=== PATIENT | female | born 1930 | race Caucasian/White ===

== ENCOUNTER → 2016-05-04 | Outpatient (CLI) | payer MEDICARE ==
[~2016-05-04] MED LIST: ACET500T3 PO; CLON0.5T PO; ERGO1CAP10 PO; FERR1TAB58 PO; IMIP50TA PO; LEXA20TA PO; LISI10TA3 PO; NORC5TAB PO; PRIM50 PO; SERO100T PO
[2016-05-04 13:27] LABS: BICARBONATE 26.6 MEQ/L (21.0-32.0); POTASSIUM 4.9 MEQ/L (3.5-5.1)
[2016-05-04 13:53] LABS: FREE T4 0.74 NG/DL (0.76-1.46)
== END ==
LOC: PLAB 09:28
PROVIDERS: ATTEND Family Medicine
DX: E87.5 Hyperkalemia (principal); E53.8 Deficiency of other specified B group vitamins; E78.4 Other hyperlipidemia; E78.5 Hyperlipidemia, unspecified; G61.9 Inflammatory polyneuropathy, unspecified
CPT/HCPCS: 80048; 82607; 84439; 84443; 84480; 86403

== ENCOUNTER → 2016-06-01 | Outpatient (CLI) | payer MEDICARE ==
[2016-06-01 13:08] LABS: HEMATOCRIT 34.9 % (35.0-46.0); MEAN CELL VOLUME 89.2 FL (80.0-100.0); MEAN CORPUSCULAR HEMOGLOBIN 29.9 PG (27.0-34.0); MEAN CORPUSCULAR HGB CONC 33.5 % (32.0-36.0); PLATELET COUNT 151 TH/MM3 (150-450); RED BLOOD COUNT 3.92 MIL/MM3 (4.00-5.30); REVIEW FLAG FINAL; WHITE BLOOD COUNT 6.2 TH/MM3 (4.0-11.0)
[2016-06-01 13:18] LABS: BACTERIA, URINE MANY /hpf; BLOOD, URINE NEG (NEG); GLUCOSE,URINE NEG (NEG); HYALINE CAST, URINE 1 /lpf (RARE); KETONE, URINE NEG (NEG); NITRITE,URINE POS (NEG); PH, URINE 5.5 (5.0-8.5); SQUAMOUS EPITHELIAL CELL URINE 4 /hpf (0-5); URINE COLOR YELLOW (YELLW/STRAW)
[2016-06-01 13:44] LABS: ANION GAP 6 MEQ/L (5-15); BLOOD UREA NITROGEN 31 MG/DL (7-18); CHLORIDE 111 MEQ/L (98-107); GLOMERULAR FILTRATION RATE 32 ML/MIN (>89); POTASSIUM 4.6 MEQ/L (3.5-5.1); SODIUM (NA) 141 MEQ/L (136-145)
[2016-06-01 14:01] LABS: FERRITIN 73 NG/ML (8-252); GLUCOSE,FASTING 96 MG/DL (74-99); IMMUNOGLOBULIN A 329 MG/DL (96-532); IMMUNOGLOBULIN G 1140 MG/DL (650-1610); IMMUNOGLOBULIN M 171 MG/DL (39-238); KAPPA LAMBDA RATIO 1.75 (1.57-3.93); LAMBDA LIGHT CHAIN 170 MG/DL (90-210); TOTAL PROTEIN SPE 7.5 GM/DL (6.0-7.6); TRANSFERRIN IRON PROFILE 224 MG/DL (200-360)
[2016-06-01 22:41] LABS: ALBUMIN SPE 4.31 GM/DL (3.50-5.00); ALPHA 1 GLOBULIN 0.28 GM/DL (0.11-0.29); ALPHA 2 GLOBULIN 0.87 GM/DL (0.22-1.00); BETA GLOBULINS (SPE) 0.84 GM/DL (0.53-1.03)
== END ==
LOC: PLAB 08:55
PROVIDERS: ATTEND Internal Medicine Nephrology
DX: N18.3 Chronic kidney disease, stage 3 (moderate) (principal); D64.9 Anemia, unspecified
CPT/HCPCS: 36415; 80069; 81001; 82570; 82728; 82784; 83540; 83550; 83883; 83970; 84156; 84165; 85027; 86160; 86334

== ENCOUNTER 2016-06-09 09:55 | Emergency (ER) | payer MEDICARE ==
[~2016-06-09] VITALS: Ht 167.6 cm; Wt 90.5 kg
[~2016-06-09 09:55] MED LIST changes: -FERR1TAB58 PO; -NORC5TAB PO
[2016-06-09 10:12] VITALS: BP 144/74; PULSE 73; RESP 18; TEMP 98.7; O2SAT 96
--- NOTE | 2016-06-09 10:23 | PD ---
HPI . Right foot injury Chief Complaint: Injury Time Seen by Provider: 10:17 Travel History International Travel<30 days: No Contact w/Intl Traveler<30days: No History of Present Illness HPI Patient is brought in by her family for evaluation of her right foot injury which occurred a little better than 24 hours ago. She reportedly fell during the night. She has had pain with ambulation since then. Family has noticed some bruising in the area PFSH Past Medical History Anxiety: Yes Depression: Yes Cancer: No Cardiovascular Problems: No High Cholesterol: Yes Dementia: Yes Diabetes: No Diminished Hearing: No Endocrine: No Gastrointestinal Disorders: No Genitourinary: Yes (sees Dr Christine for kidney insuff) Hypertension: Yes Immune Disorder: No Implanted Vascular Access Dvce: No Musculoskeletal: No Neurologic: Yes (upper extrem tremors- sees Dr Garnett. Dementia) Psychiatric: Yes Respiratory: No Renal Failure: Yes Menopausal: Yes Past Surgical History Cholecystectomy: Yes Eye Surgery: Yes (CATARACTS REMOVED BILAT. 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 Reported Meds & Prescriptions Reported Meds & Active Scripts Active [place] (Hydrocodone-Acetaminophen) 5-325 mg Tab 1 Tab PO Q6H PRN Acetaminophen 500 Mg Tab 500 Mg PO Q6H PRN Reported Iron (Ferrous Sulfate) 50 Mg Tab 65 Mg PO DAILY Vitamin D (Ergocalciferol) 50,000 Unit Cap 50,000 Units PO Q7D Seroquel (Quetiapine Fumarate) 100 Mg Tab 50 Mg PO BID Mysoline (Primidone) 50 Mg Tab 100 Mg PO TID Imipramine HCL (Imipramine HCl) 50 Mg Tab 200 Mg PO HS Lexapro (Escitalopram Oxalate) 20 Mg Tab 20 Mg PO DAILY Clonazepam 0.5 Mg Tab 0.5 Mg PO BID Review of Systems Except as stated in HPI: all other systems reviewed are Neg Musculoskeletal: Positive: Arthralgias Skin: Positive Change in Pigmentation Physical Exam Narrative GENERAL: Awake and alert and in no acute distress. SKIN: Warm and dry. Minimal bruising on the dorsal aspect of the right foot at the base of the toes. CARDIOVASCULAR: Regular rate and rhythm. RESPIRATORY: No accessory muscle use. MUSCULOSKELETAL: No obvious deformities. No edema. Mild tenderness to palpation of the distal metatarsals. NEUROLOGICAL: Awake and alert. No obvious cranial nerve deficits. Motor grossly within normal limits. Normal speech. PSYCHIATRIC: Appropriate mood and affect; insight and judgment normal. Data Data Last Documented VS Vital Signs Date Time Temp Pulse Resp B/P Pulse Ox O2 Delivery O2 Flow Rate FiO2 06/09/16 10:12 98.7 73 18 144/74 96 Room Air Orders Foot, Complete ([id number]) (06/09/16 10:20) [facility] Medical Decision Making Medical Screen Exam Complete: Yes Emergency Medical Condition: Yes Differential Diagnosis Differential diagnosis of extremity trauma includes but is not limited to fracture, sprain or strain, dislocation, contusion Narrative Course Patient presents for evaluation of a right foot injury. X-ray to my interpretation is negative for fracture. Diagnosis Primary Impression: Contusion of right foot Qualified Code: S90.31XA - Contusion of right foot, initial encounter Patient Instructions: Contusion in Adults (DC), General Instructions Additional Instructions: Rest, ice and elevate Med/Other Pt SpecificInfo: Prescription(s) given Scripts Hydrocodone-Acetaminophen ([place])5-325 mg Tab1 Tab PO Q6H PRN (PAIN) #10 TAB Ref 0 Prov:Nicole Scott MD 06/09/16 Disposition: 01 DISCHARGE HOME Condition: Stable Nicole Scott MD Jun 09, 2016 10:23
[2016-06-09] MEDS ORDERED: FERR1TAB58 PO (10:32)
--- NOTE | 2016-06-09 10:46 | RADHPO ---
EXAM DATE/TIME: 06/09/2016 10:23 [facility] COMPARISON: No previous studies available for comparison. INDICATIONS : Right lateral/dorsal foot pain/swelling after falling out of bed. MEDICAL HISTORY : Hypertension. Hypercholesterolemia. Renal failure. Dementia. SURGICAL HISTORY : Cholecystectomy. Tonsillectomy. Cataract. ENCOUNTER: Initial ACUITY: 2 days PAIN SCORE: 8/10 LOCATION: Right lateral dorsal foot. FINDINGS: Three view examination of the right foot demonstrates soft tissue swelling without islocation, or fra cture. The tarsal bones appear intact. Moderate size plantar calcaneal spur. The calcaneus is inta ct. Bony mineralization is normal. CONCLUSION: Soft tissue swelling without fracture. Marlon Orozco MD on June 09, 2016 at 10:39 Board Certified Radiologist. This report was verified electronically.
[2016-06-09] MEDS ORDERED: NORC5TAB PO (10:48)
== END 2016-06-09 11:00 | disposition home or self-care (01) ==
LOC: PHED 09:55
DX: S90.31XA Contusion of right foot, initial encounter (principal); I10 Essential (primary) hypertension; E78.00 Pure hypercholesterolemia, unspecified; F03.90 Unspecified dementia, unspecified severity, without behavioral disturbance, psychotic disturbance, mood disturbance, and anxiety; Z87.448 Personal history of other diseases of urinary system; Z86.69 Personal history of other diseases of the nervous system and sense organs; Z86.59 Personal history of other mental and behavioral disorders; Z87.891 Personal history of nicotine dependence; W19.XXXA Unspecified fall, initial encounter
CPT/HCPCS: 73630; 99283

== ENCOUNTER 2016-07-12 13:19 | Emergency (ER) | payer MEDICARE ==
[~2016-07-12] VITALS: Ht 167.6 cm; Wt 84.0 kg
[~2016-07-12 13:19] MED LIST changes: +FERR1TAB58 PO; -LISI10TA3 PO; +NORC5TAB PO
[2016-07-12 13:36] VITALS: BP 143/78; PULSE 68; RESP 16; TEMP 98.4; O2SAT 93
--- NOTE | 2016-07-12 13:56 | PD ---
HPI Chief Complaint: Fall Time Seen by Provider: 13:53 Travel History International Travel<30 days: No Contact w/Intl Traveler<30days: No Traveled to known affect area: No History of Present Illness HPI Patient presents for skin tear right forearm. Reports a fall last night while using her walker where she hit her right upper arm on the wall. Dressing was applied at that time. Tetanus is up-to-date. PFSH Past Medical History Anxiety: Yes Depression: Yes Cancer: No Cardiovascular Problems: No High Cholesterol: Yes Dementia: Yes Diabetes: No Diminished Hearing: No Endocrine: No Gastrointestinal Disorders: No Genitourinary: Yes (sees Dr Christine for kidney insuff) Hypertension: Yes Immune Disorder: No Implanted Vascular Access Dvce: No Musculoskeletal: No Neurologic: Yes (upper extrem tremors- sees Dr Garnett. Dementia) Psychiatric: Yes Respiratory: No Renal Failure: Yes Menopausal: Yes Past Surgical History Cholecystectomy: Yes Eye Surgery: Yes (CATARACTS REMOVED BILAT. 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 Reported Meds & Prescriptions Reported Meds & Active Scripts Active [place] (Hydrocodone-Acetaminophen) 5-325 mg Tab 1 Tab PO Q6H PRN Acetaminophen 500 Mg Tab 500 Mg PO Q6H PRN Reported Iron (Ferrous Sulfate) 50 Mg Tab 65 Mg PO DAILY Vitamin D (Ergocalciferol) 50,000 Unit Cap 50,000 Units PO Q7D Seroquel (Quetiapine Fumarate) 100 Mg Tab 50 Mg PO BID Mysoline (Primidone) 50 Mg Tab 100 Mg PO TID Imipramine HCL (Imipramine HCl) 50 Mg Tab 200 Mg PO HS Lexapro (Escitalopram Oxalate) 20 Mg Tab 20 Mg PO DAILY Clonazepam 0.5 Mg Tab 0.5 Mg PO BID Review of Systems General / Constitutional: No: Fever Eyes: No: Visual changes HENT: No: Headaches Cardiovascular: No: Chest Pain or Discomfort Respiratory: No: Shortness of Breath Gastrointestinal: No: Abdominal Pain Genitourinary: No: Dysuria Musculoskeletal: No: Pain Skin: No Rash Neurologic: No: Weakness Psychiatric: No: Depression Endocrine: No: Polydipsia Hematologic/Lymphatic: No: Easy Bruising Physical Exam Narrative GENERAL: Well-nourished, well-developed patient. SKIN: Warm and dry. HEAD: Normocephalic. EYES: No scleral icterus. No injection or drainage. NECK: Supple, trachea midline. No JVD or lymphadenopathy. CARDIOVASCULAR: Regular rate and rhythm without murmurs, gallops, or rubs. RESPIRATORY: Breath sounds equal bilaterally. No accessory muscle use. GASTROINTESTINAL: Abdomen soft, non-tender, nondistended. MUSCULOSKELETAL: No cyanosis, or edema. BACK: Nontender without obvious deformity. No CVA tenderness. 2 x 3 cm skin tear right mid upper arm Data Data Last Documented VS Vital Signs Date Time Temp Pulse Resp B/P Pulse Ox O2 Delivery O2 Flow Rate FiO2 07/12/16 13:36 98.4 68 16 143/78 93 MDM Medical Decision Making Medical Screen Exam Complete: Yes Emergency Medical Condition: Yes Differential Diagnosis Skin tear, contusion, shoulder strain, fall risk Narrative Course Assessment and plan discussed with patient and community marketing coordinator bedside. Wound was cleaned and dressed in sterile fashion Diagnosis Primary Impression: Skin tear of right upper arm without complication Qualified Code: S41.111A - Skin tear of right upper arm without complication, initial encounter Patient Instructions: General Instructions Additional Instructions: Encouraged general wound care, follow-up with PCP Med/Other Pt SpecificInfo: No Meds Exist/No RX given, Wound Care Disposition: 01 DISCHARGE HOME Condition: Good Delfin Oliveira MD Jul 12, 2016 13:56
== END 2016-07-12 14:25 | disposition home or self-care (01) ==
LOC: PHED 13:19
DX: S50.911A Unspecified superficial injury of right forearm, initial encounter (principal); E78.00 Pure hypercholesterolemia, unspecified; I10 Essential (primary) hypertension; F03.90 Unspecified dementia, unspecified severity, without behavioral disturbance, psychotic disturbance, mood disturbance, and anxiety; Z87.891 Personal history of nicotine dependence; W18.30XA Fall on same level, unspecified, initial encounter; Y93.01 Activity, walking, marching and hiking; Y92.89 Other specified places as the place of occurrence of the external cause; Y99.8 Other external cause status
CPT/HCPCS: 99282

== ENCOUNTER 2016-08-12 09:45 | Emergency (ER) | payer MEDICARE ==
[~2016-08-12] VITALS: Ht 167.6 cm; Wt 80.6 kg
[2016-08-12 09:54] VITALS: BP 146/80; PULSE 78; RESP 18; TEMP 98
[2016-08-12] MEDS ORDERED: ACETAMINOPHEN 500 MG CPLT PO ONE (10:15)
--- NOTE | 2016-08-12 10:38 | RADHPO ---
EXAM DATE/TIME: 08/12/2016 10:21 [facility] COMPARISON: No previous studies available for comparison. INDICATIONS : Left wrist pain & swelling post fall. MEDICAL HISTORY : Hypertension. Hypercholesterolemia. Dementia. Renal failure. SURGICAL HISTORY : Tonsillectomy. Cholecystectomy. Cataract removal. ENCOUNTER: Initial ACUITY: 1 day PAIN SCORE: 10/10 LOCATION: Left wrist FINDINGS: AP, lateral and oblique views of the left wrist were obtained and demonstrate a mildly comminuted fra cture deformity of the distal radius with multiple ill defined fracture lines. There is mild dorsal a ngulation of the main distal fracture fragment with fracture lines extending into the radiocarpal juan jose nt. There is a nondisplaced fracture through the base of the ulnar styloid as well. The carpus is int act. There is diffuse osteopenia with mild to moderate osteoarthritic change. There is diffuse soft t issue swelling. CONCLUSION: 1. Mildly comminuted fracture of the distal radius. 2. Nondisplaced fracture through the base of the ulnar styloid. 3. Osteopenia and degenerative change. Vic Stephens MD on August 12, 2016 at 10:36 Board Certified Radiologist. This report was verified electronically.
--- NOTE | 2016-08-12 10:59 | PD ---
HPI Chief Complaint: Fall Time Seen by Provider: 10:02 Travel History International Travel<30 days: No Contact w/Intl Traveler<30days: No Traveled to known affect area: No History of Present Illness HPI 86 year-old woman history dementia presents emergent department after a fall. She was found on the floor of the bathroom this morning. She falls frequently. She complains of left wrist pain. She otherwise has been feeling well and healthy. No other complaints. No evidence of head injury. No complaints of headache or neck pain. PFSH Past Medical History Hx Anticoagulant Therapy: Yes Anxiety: Yes Depression: Yes Cancer: No Cardiovascular Problems: No High Cholesterol: Yes Dementia: Yes Diabetes: No Diminished Hearing: No Endocrine: No Gastrointestinal Disorders: No Genitourinary: Yes (sees Dr Christine for kidney insuff) Hypertension: Yes Immune Disorder: No Implanted Vascular Access Dvce: No Musculoskeletal: No Neurologic: Yes (upper extrem tremors- sees Dr Garnett. Dementia) Psychiatric: Yes Respiratory: No Renal Failure: Yes ?: Not Menopausal: Yes Past Surgical History Cholecystectomy: Yes Eye Surgery: Yes (CATARACTS REMOVED BILAT. 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 Reported Meds & Prescriptions Reported Meds & Active Scripts Active [place] (Hydrocodone-Acetaminophen) 5-325 mg Tab 1 Tab PO Q6H PRN Acetaminophen 500 Mg Tab 500 Mg PO Q6H PRN Reported Iron (Ferrous Sulfate) 50 Mg Tab 65 Mg PO DAILY Vitamin D (Ergocalciferol) 50,000 Unit Cap 50,000 Units PO Q7D Seroquel (Quetiapine Fumarate) 100 Mg Tab 50 Mg PO BID Mysoline (Primidone) 50 Mg Tab 100 Mg PO TID Imipramine HCL (Imipramine HCl) 50 Mg Tab 200 Mg PO HS Lexapro (Escitalopram Oxalate) 20 Mg Tab 20 Mg PO DAILY Clonazepam 0.5 Mg Tab 0.5 Mg PO BID Review of Systems ROS Limitations: Clinical Condition Physical Exam Narrative GENERAL: Well-appearing 86 year-old woman, no acute distress. SKIN: Focused skin assessment warm/dry. HEAD: Atraumatic. Normocephalic. EYES: Pupils equal and round. No scleral icterus. No injection or drainage. ENT: No nasal bleeding or discharge. Mucous membranes pink and moist. NECK: Trachea midline. No JVD. No midline tenderness. Full painless range of motion. CARDIOVASCULAR: Regular rate and rhythm. No murmur appreciated. RESPIRATORY: No accessory muscle use. Clear to auscultation. Breath sounds equal bilaterally. GASTROINTESTINAL: Abdomen soft, non-tender, nondistended. Hepatic and splenic margins not palpable. MUSCULOSKELETAL: Obvious swelling with possible deformity to left wrist. There is tenderness. No open wounds. Couple skin tears are healing to the right arm that are old. NEUROLOGICAL: Awake and alert. Pleasantly confused. No obvious cranial nerve deficits. Motor grossly within normal limits. Normal speech. Data Data Last Documented VS Vital Signs Date Time Temp Pulse Resp B/P Pulse Ox O2 Delivery O2 Flow Rate FiO2 08/12/16 09:54 98.0 78 18 146/80 Orders Acetaminophen (Tylenol) (08/12/16 10:15) Wrist, Complete ([id number]) (08/12/16 ) [facility] Medical Decision Making Medical Screen Exam Complete: Yes Emergency Medical Condition: Yes Interpretation(s) Left wrist x-ray: Mildly comminuted fracture of the distal radius. Nondisplaced fracture through the base of the ulnar styloid. Differential Diagnosis Left wrist injury, contusion, fracture, other Narrative Course Medical decision making 86 old woman with a left wrist fracture. X-ray shows mildly comminuted fracture of the distal radius. She looks otherwise well. Don't see evidence of head or neck injury. She falls frequently. Her symptoms therapy. We'll splint, Tylenol for pain. Some multiple sedating medications but her caregiver states they've tried weaning her off the before with poor affect. Diagnosis Primary Impression: Left wrist fracture Referrals: Jose Lopez MD 1 week Patient Instructions: General Instructions Additional Instructions: Use acetaminophen as needed for pain. Keep splint clean and dry. Follow-up with orthopedics in one to 2 weeks for repeat evaluation. Return to the emergency department for any new or worsening symptoms. Med/Other Pt SpecificInfo: Prescription(s) given Disposition: 01 DISCHARGE HOME Condition: Stable Shakir Velasquez MD Aug 12, 2016 10:59
== END 2016-08-12 11:11 | disposition home or self-care (01) ==
LOC: PHED 09:45
DX: S52.592A Other fractures of lower end of left radius, initial encounter for closed fracture (principal); S52.615A Nondisplaced fracture of left ulna styloid process, initial encounter for closed fracture; F03.90 Unspecified dementia, unspecified severity, without behavioral disturbance, psychotic disturbance, mood disturbance, and anxiety; I10 Essential (primary) hypertension; E78.00 Pure hypercholesterolemia, unspecified; W19.XXXA Unspecified fall, initial encounter; Y92.002 Bathroom of unspecified non-institutional (private) residence as the place of occurrence of the external cause; Z91.81 History of falling; Z79.01 Long term (current) use of anticoagulants; Z87.448 Personal history of other diseases of urinary system; Z86.69 Personal history of other diseases of the nervous system and sense organs; Z86.59 Personal history of other mental and behavioral disorders; Z87.891 Personal history of nicotine dependence
CPT/HCPCS: 29125; 73110

== ENCOUNTER → 2016-11-27 | Outpatient (CLI) | payer MEDICARE ==
[2016-11-27 13:01] LABS: BACTERIA, URINE MOD /hpf; BLOOD, URINE SMALL (NEG); GLUCOSE,URINE NEG (NEG); KETONE, URINE NEG (NEG); MUCUS URINE FEW /lpf (OCC); PH, URINE 6.5 (5.0-8.5); SQUAMOUS EPITHELIAL CELL URINE 1 /hpf (0-5); TRANSITIONAL EPI CELLS, URINE <1 /hpf; URINE COLOR YELLOW (YELLW/STRAW)
[2016-11-27 13:02] LABS: COMMENT (UR) CULTURE INDICATED; CULTURE IF INDICATED CULTURE INDICATED; NITRITE,URINE POS (NEG)
== END ==
LOC: PLAB 09:00
PROVIDERS: ATTEND Family Medicine
DX: N39.0 Urinary tract infection, site not specified (principal); B96.4 Proteus (mirabilis) (morganii) as the cause of diseases classified elsewhere
CPT/HCPCS: 81001; 87077; 87086; 87186

== ENCOUNTER → 2016-11-30 | Outpatient (CLI) | payer MEDICARE ==
[2016-11-30 10:54] LABS: AUTOMATED NEUTROPHIL # 4.1 TH/MM3 (1.8-7.7); BASOPHIL # 0.1 TH/MM3 (0-0.2); EOSINOPHIL # 0.5 TH/MM3 (0-0.4); EOSINOPHIL % 8.2 % (0.0-4.0); HEMATOCRIT 35.7 % (35.0-46.0); HEMO FLAGS DIFF FINAL; LYMPHOCYTE # 1.6 TH/MM3 (1.0-4.8); MEAN CELL VOLUME 88.7 FL (80.0-100.0); MEAN CORPUSCULAR HEMOGLOBIN 29.8 PG (27.0-34.0); MEAN CORPUSCULAR HGB CONC 33.6 % (32.0-36.0); MONO % 5.3 % (0.0-8.0); NEUT % 61.5 % (16.0-70.0); PLATELET COUNT 177 TH/MM3 (150-450); RED BLOOD COUNT 4.02 MIL/MM3 (4.00-5.30); RED CELL DISTRIBUTION WIDTH 13.3 % (11.6-17.2); WHITE BLOOD COUNT 6.6 TH/MM3 (4.0-11.0)
[2016-11-30 11:05] LABS: BICARBONATE 25.7 MEQ/L (21.0-32.0); POTASSIUM 4.2 MEQ/L (3.5-5.1)
[2016-11-30 13:28] LABS: BACTERIA, URINE RARE /hpf; BLOOD, URINE NEG (NEG); COMMENT (UR) CULT NOT INDICATED; CULTURE IF INDICATED CULT NOT INDICATED; GLUCOSE,URINE NEG (NEG); KETONE, URINE NEG (NEG); MUCUS URINE FEW /lpf (OCC); NITRITE,URINE NEG (NEG); PH, URINE 5.5 (5.0-8.5); SQUAMOUS EPITHELIAL CELL URINE 2 /hpf (0-5); URINE COLOR YELLOW (YELLW/STRAW)
== END ==
LOC: PLAB 08:25
PROVIDERS: ATTEND Family Medicine
DX: N39.0 Urinary tract infection, site not specified (principal); N18.3 Chronic kidney disease, stage 3 (moderate); E55.9 Vitamin D deficiency, unspecified
CPT/HCPCS: 80069; 81001; 82306; 82570; 83970; 84156; 85025

== ENCOUNTER 2017-05-20 12:33 | Inpatient (IN) | payer MEDICARE, OTHER ==
[2017-05-20 12:44] VITALS: BP 100/50; PULSE 53; RESP 16; TEMP 97.9; O2SAT 96
--- NOTE | 2017-05-20 12:56 | PD ---
HPI Chief Complaint: Psychiatric Symptoms Time Seen by Provider: 12:45 Travel History International Travel<30 days: No Contact w/Intl Traveler<30days: No Traveled to known affect area: No History of Present Illness HPI 87 y/o female presents under [place] act by police. Report from staff was that someone had heard she was wanting to kill herself. Patient denies this to me. She states she is having abdominal pain. She cannot tell me for how long she's been having it. She denies any other concurrent complaints at this time. She denies specific modifying factors but is a very poor historian. PFSH Past Medical History Hx Anticoagulant Therapy: Yes Anxiety: Yes Depression: Yes Cancer: No Cardiovascular Problems: No High Cholesterol: Yes Dementia: Yes Diabetes: No Diminished Hearing: No Endocrine: No Gastrointestinal Disorders: No Genitourinary: Yes (sees Dr Christine for kidney insuff) Hypertension: Yes Immune Disorder: No Implanted Vascular Access Dvce: No Musculoskeletal: No Neurologic: Yes (upper extrem tremors- sees Dr Garnett. Dementia) Psychiatric: Yes Respiratory: No Renal Failure: Yes Menopausal: Yes Past Surgical History Cholecystectomy: Yes Eye Surgery: Yes (CATARACTS REMOVED BILAT. 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 Reported Meds & Prescriptions Reported Meds & Active Scripts Active [place] (Hydrocodone-Acetaminophen) 5-325 mg Tab 1 Tab PO Q6H PRN Reported Calcitriol 0.25 Mcg Cap 0.25 Mcg PO Vitamin D2 (Ergocalciferol) 2,000 Unit Tab 50,000 Units PO WEDNESDAY Iron (Ferrous Sulfate) 18 Mg Tab 65 Mg PO DAILY Tofranil (Imipramine HCl) 50 Mg Tab 200 Mg PO HS Seroquel (Quetiapine Fumarate) 100 Mg Tab 50 Mg PO BID Mysoline (Primidone) 50 Mg Tab 100 Mg PO TID Lexapro (Escitalopram Oxalate) 20 Mg Tab 20 Mg PO DAILY Clonazepam 0.5 Mg Tab 0.5 Mg PO BID Review of Systems Except as stated in HPI: all other systems reviewed are Neg Physical Exam Narrative GENERAL: Well-nourished, well-developed patient. SKIN: Warm and dry. HEAD: Normocephalic and atraumatic. EYES: No injection or drainage. ENT: No nasal drainage noted. NECK: Supple, trachea midline. CARDIOVASCULAR: Regular rate and rhythm RESPIRATORY: Breath sounds equal bilaterally. No accessory muscle use. GASTROINTESTINAL: Abdomen soft, diffusely tender, nondistended. NEUROLOGICAL: Awake. moves all extremities and sensory grossly within normal limits. Normal speech. Data Data Last Documented VS Vital Signs Date Time Temp Pulse Resp B/P (MAP) Pulse Ox O2 Delivery O2 Flow Rate FiO2 05/20/17 15:49 62 15 107/77 (87) 95 Room Air 05/20/17 12:44 97.9 Orders Orders Electrocardiogram (05/20/17 12:48) Complete Blood Count With Diff (05/20/17 12:48) Comprehensive Metabolic Panel (05/20/17 12:48) Urinalysis - C+S If Indicated (05/20/17 12:48) Chest, Single Ap (05/20/17 12:48) Ct Brain W/O Iv Contrast(Rout) (05/20/17 12:48) Ecg Monitoring (05/20/17 12:48) Iv Access Insert/Monitor (05/20/17 12:48) Oximetry (05/20/17 12:48) Sodium Chloride 0.9% Flush (Ns Flush) (05/20/17 13:00) Drug Screen, Random Urine (05/20/17 12:48) Alcohol (Ethanol) (05/20/17 12:48) Lactic Acid (05/20/17 12:48) Urine Culture (05/20/17 13:00) Magnesium (Mg) (05/20/17 14:06) Potassium Chloride Eff (K-Lyte Cl Eff) (05/20/17 14:15) Ct Abd/Pel W/O Iv Contrast (05/20/17 ) Ceftriaxone Inj (Rocephin Inj) (05/20/17 15:45) Admit Order (Ed Use Only) (05/20/17 15:53) Diet Heart Healthy (05/20/17 Dinner) Vital Signs (Adult) SHELBI.Q4H (05/20/17 15:52) Consult Psychiatry (05/20/17 ) Potassium Chloride (Kcl) (05/20/17 18:00) Sodium Chlorid 0.9% 500 Ml Inj (Ns 500 M (05/20/17 16:00) Basic Metabolic Panel (Bmp) (05/21/17 06:00) Labs Laboratory Tests Test 05/20/17 12:50 05/20/17 13:00 05/20/17 13:10 White Blood Count 7.8 TH/MM3 Red Blood Count 3.61 MIL/MM3 Hemoglobin 11.1 GM/DL Hematocrit 31.9 % Mean Corpuscular Volume 88.3 FL Mean Corpuscular Hemoglobin 30.8 PG Mean Corpuscular Hemoglobin Concent 34.8 % Red Cell Distribution Width 14.5 % Platelet Count 227 TH/MM3 Mean Platelet Volume 11.7 FL Neutrophils (%) (Auto) 63.1 % Lymphocytes (%) (Auto) 25.3 % Monocytes (%) (Auto) 6.0 % Eosinophils (%) (Auto) 4.4 % Basophils (%) (Auto) 1.2 % Neutrophils # (Auto) 4.9 TH/MM3 Lymphocytes # (Auto) 2.0 TH/MM3 Monocytes # (Auto) 0.5 TH/MM3 Eosinophils # (Auto) 0.3 TH/MM3 Basophils # (Auto) 0.1 TH/MM3 CBC Comment DIFF FINAL Differential Comment Blood Urea Nitrogen 29 MG/DL Creatinine 1.70 MG/DL Random Glucose 134 MG/DL Total Protein 6.9 GM/DL Albumin 2.8 GM/DL Calcium Level 8.2 MG/DL Alkaline Phosphatase 126 U/L Aspartate Amino Transf (AST/SGOT) 22 U/L Alanine Aminotransferase (ALT/SGPT) 25 U/L Total Bilirubin 0.2 MG/DL Sodium Level 138 MEQ/L Potassium Level 2.8 MEQ/L Chloride Level 99 MEQ/L Carbon Dioxide Level 30.1 MEQ/L Anion Gap 9 MEQ/L Estimat Glomerular Filtration Rate 29 ML/MIN Magnesium Level 2.2 MG/DL Ethyl Alcohol Level LESS THAN 3 MG/DL Urine Color YELLOW Urine Turbidity HAZY Urine pH 6.5 Urine Specific [place] 1.017 Urine Protein 30 mg/dL Urine Glucose (UA) NEG mg/dL Urine Ketones NEG mg/dL Urine Occult Blood SMALL Urine Nitrite NEG Urine Bilirubin NEG Urine Urobilinogen LESS THAN 2.0 MG/DL Urine Leukocyte Esterase LARGE Urine RBC 5 /hpf Urine WBC /hpf Urine WBC Clumps MOD Urine Squamous Epithelial Cells 2 /hpf Urine Transitional Epithelial Cells <1 /hpf Urine Bacteria FEW /hpf Urine Hyaline Casts 3 /lpf Microscopic Urinalysis Comment CATH-CULTURE IND Urine Opiates Screen NEG Urine Barbiturates Screen POS Urine Amphetamines Screen NEG Urine Benzodiazepines Screen NEG Urine Cocaine Screen NEG Urine Cannabinoids Screen NEG Lactic Acid Level 1.4 mmol/L MDM Medical Decision Making Medical Screen Exam Complete: Yes Emergency Medical Condition: Yes Medical Record Reviewed: Yes (pmh confirmed) Interpretation(s) CBC & BMP Diagram 05/20/17 12:50 Total Protein 6.9, Albumin 2.8 L, Calcium Level 8.2 L, Alkaline Phosphatase 126 H, Aspartate Amino Transf (AST/SGOT) 22, Alanine Aminotransferase (ALT/SGPT) 25 , Total Bilirubin 0.2 ua with uti Last [address] 05/20/17 1248 Signed Impressions: Service Date/Time: May 15:09 - CONCLUSION: 1. Cerebral atrophy and chronic ischemic small vessel vasculopathy. 2. No acute intracranial abnormality. Marlon Orozco MD Chest X-Ray 05/20/17 1248 Signed Impressions: Service Date/Time: May 13:08 - CONCLUSION: 1. Mild bibasilar atelectasis versus scarring. Rodger Talamantes MD Abdomen/Pelvis CT 05/20/17 0000 Signed Impressions: Service Date/Time: May 15:11 - CONCLUSION: 1. Moderate diverticulosis with no definite inflammatory change. 2. 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 3. Status post cholecystectomy. Vic Stephens MD Differential Diagnosis UTI, dementia, depression, electrolyte abnormality, stone, musculoskeletal Narrative Course Will check blood work, urinalysis, CT scan abdominal pelvis and head and reevaluate ED workup shows hypokalemia and UTI. Will dose with Rocephin and start replacement and admit to the hospital for further care Physician Communication Physician Communication dr hallman agrees to admit Diagnosis Primary Impression: UTI (urinary tract infection) Qualified Codes: N39.0 - Urinary tract infection, site not specified Additional Impression: Hypokalemia Admitting Information Admitting Physician Requests: Admit Rosalva Blair MD May 20, 2017 12:55
[2017-05-20] MEDS ORDERED: SODIUM CHLORIDE 0.9% FLUSH 10 ML FLUSH IV FLUSH PRN (13:00)
[2017-05-20] MEDS ORDERED: CALC0.25 PO (13:41)
[2017-05-20] MEDS ORDERED: TOFR50TA PO (13:41)
[2017-05-20] MEDS ORDERED: ERGO2000 PO (13:41)
[2017-05-20] MEDS ORDERED: IRON18TA PO (13:41)
--- NOTE | 2017-05-20 13:42 | RADRPT ---
EXAM DATE/TIME: 05/20/2017 13:08 [facility] COMPARISON: CHEST SINGLE AP, November 03, 2015, 18:06. INDICATIONS : Palpitations. MEDICAL HISTORY : Hypertension. Hypercholesterolemia. dementia, renal failure SURGICAL HISTORY : Tonsillectomy. cataract removal ENCOUNTER: Initial ACUITY: 1 day PAIN SCORE: Non-responsive. LOCATION: Bilateral chest FINDINGS: Minimal bibasilar airspace disease similar to prior exam. Cardiomediastinal contours are stable. Kaylynn yonis of the exam is unchanged. CONCLUSION: 1. Mild bibasilar atelectasis versus scarring. Rodger Talamantes MD on May 20, 2017 at 13:37 Board Certified Radiologist. This report was verified electronically.
[2017-05-20 13:43] LABS: AUTOMATED NEUTROPHIL # 4.9 TH/MM3 (1.8-7.7); BASOPHIL # 0.1 TH/MM3 (0-0.2); BASOPHIL % 1.2 % (0.0-2.0); EOSINOPHIL # 0.3 TH/MM3 (0-0.4); EOSINOPHIL % 4.4 % (0.0-4.0); HEMATOCRIT 31.9 % (35.0-46.0); HEMOGLOBIN 11.1 GM/DL (11.6-15.3); LYMPH % 25.3 % (9.0-44.0); MEAN CELL VOLUME 88.3 FL (80.0-100.0); MEAN CORPUSCULAR HEMOGLOBIN 30.8 PG (27.0-34.0); MEAN CORPUSCULAR HGB CONC 34.8 % (32.0-36.0); MEAN PLATELET VOLUME 11.7 FL (7.0-11.0); MONOCYTE # 0.5 TH/MM3 (0-0.9); NEUT % 63.1 % (16.0-70.0); PLATELET COUNT 227 TH/MM3 (150-450); RED BLOOD COUNT 3.61 MIL/MM3 (4.00-5.30); RED CELL DISTRIBUTION WIDTH 14.5 % (11.6-17.2); WHITE BLOOD COUNT 7.8 TH/MM3 (4.0-11.0)
[2017-05-20 13:49] VITALS: BP 115/64; PULSE 65; RESP 18; O2SAT 95
[2017-05-20 13:54] LABS: BACTERIA, URINE FEW /hpf; BILIRUBIN, URINE NEG (NEG); BLOOD, URINE SMALL (NEG); GLUCOSE,URINE NEG (NEG); HYALINE CAST, URINE 3 /lpf (RARE); KETONE, URINE NEG (NEG); NITRITE,URINE NEG (NEG); PH, URINE 6.5 (5.0-8.5); SQUAMOUS EPITHELIAL CELL URINE 2 /hpf (0-5); TRANSITIONAL EPI CELLS, URINE <1 /hpf; URINE COLOR YELLOW (YELLW/STRAW); URINE LEUKOCYTE ESTERASE LARGE (NEG); WHITE BLOOD CELL CLUMPS MOD
[2017-05-20 14:02] LABS: ALBUMIN 2.8 GM/DL (3.4-5.0); ALT (GPT) 25 U/L (10-53); AST (GOT) 22 U/L (15-37); BICARBONATE 30.1 MEQ/L (21.0-32.0); BLOOD UREA NITROGEN 29 MG/DL (7-18); CALCIUM 8.2 MG/DL (8.5-10.1); CHLORIDE 99 MEQ/L (98-107); GLOMERULAR FILTRATION RATE 29 ML/MIN (>89); GLUCOSE,RANDOM 134 MG/DL (74-106); SODIUM (NA) 138 MEQ/L (136-145)
[2017-05-20 14:05] LABS: ALKALINE PHOSPHATASE 126 U/L (45-117); TOTAL BILIRUBIN ADULT 0.2 MG/DL (0.2-1.0); TOTAL PROTEIN 6.9 GM/DL (6.4-8.2)
[2017-05-20] MEDS ORDERED: POTASSIUM CHLORIDE 25 MEQ EFFERVESCENT TAB PO ONE (14:15)
--- NOTE | 2017-05-20 15:23 | RADRPT ---
EXAM DATE/TIME: 05/20/2017 15:09 [facility] COMPARISON: CT BRAIN W/O CONTRAST, March 23, 2016, 11:06. INDICATIONS : Altered mental status RADIATION DOSE: 31.05 CTDIvol (mGy) MEDICAL HISTORY : Dementia. Hypertension. Alzheimers.Renal disease SURGICAL HISTORY : Cholecystectomy. ENCOUNTER: Initial ACUITY: 1 day PAIN SCALE: 5/10 LOCATION: cranial TECHNIQUE: Multiple contiguous axial images were obtained of the head. Using automated exposure control and adj ustment of the mA and/or kV according to patient size, radiation dose was kept as low as reasonably a chievable to obtain optimal diagnostic quality images. DICOM format image data is available electro nically for review and comparison. FINDINGS: CEREBRUM: The ventricles are prominent consistent with atrophy. Areas of low-attenuation throughout the periven tricular white matter.. No evidence of midline shift, mass lesion, hemorrhage or acute infarction. No extra-axial fluid collections are seen. POSTERIOR FOSSA: The cerebellum and brainstem are intact. The 4th ventricle is midline. The cerebellopontine angle i s unremarkable. EXTRACRANIAL: The visualized portion of the orbits is intact. SKULL: The calvaria is intact. No evidence of skull fracture. CONCLUSION: 1. Cerebral atrophy and chronic ischemic small vessel vasculopathy. 2. No acute intracranial abnormality. Marlon Orozco MD on May 20, 2017 at 15:19 Board Certified Radiologist. This report was verified electronically.
--- NOTE | 2017-05-20 15:34 | RADRPT ---
EXAM DATE/TIME: 05/20/2017 15:11 [facility] COMPARISON: CT ABDOMEN & PELVIS W/O CONTRAST, August 27, 2015, 9:49. INDICATIONS : Abdominal pain. History of diverticulitis. ORAL CONTRAST: No oral contrast ingested. RADIATION DOSE: 16.98 CTDIvol (mGy) MEDICAL HISTORY : Dementia. Hypertension. Alzheimers.Renal disease SURGICAL HISTORY : Cholecystectomy. ENCOUNTER: Initial ACUITY: 1 day PAIN SCALE: 5/10 LOCATION: Bilateral Abdomen TECHNIQUE: Volumetric scanning of the abdomen and pelvis was performed. Using automated exposure control and ad justment of the mA and/or kV according to patient size, radiation dose was kept as low as reasonably achievable to obtain optimal diagnostic quality images. DICOM format image data is available electro nically for review and comparison. FINDINGS: LOWER LUNGS: The visualized lower lungs are clear. LIVER: Homogeneous density without lesion. There is no dilation of the biliary tree. The patient is status post cholecystectomy. SPLEEN: Normal size without lesion. PANCREAS: Within normal limits. KIDNEYS: Normal in size and shape. There is no mass, stone, or hydronephrosis. ADRENAL GLANDS: Within normal limits. VASCULAR: Atherosclerotic changes are again noted in the aorta with dilatation, calcification and tortuosity. T here is mild aneurysmal dilatation measuring up to approximately 3.1 cm in AP diameter. BOWEL/MESENTERY: Multiple diverticuli are again noted greatest in the sigmoid colon with no definite focal wall thicke nicole or inflammatory change. There is a normal appendix. ABDOMINAL WALL: Within normal limits. RETROPERITONEUM: There is no lymphadenopathy. BLADDER: No wall thickening or mass. REPRODUCTIVE: Within normal limits. INGUINAL: There is no lymphadenopathy or hernia. MUSCULOSKELETAL: Osteopenia, degenerative changes and scoliosis are again noted. CONCLUSION: 1. Moderate diverticulosis with no definite inflammatory change. 2. 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 3. Status post cholecystectomy. Vic Stephens MD on May 20, 2017 at 15:26 Board Certified Radiologist. This report was verified electronically.
[2017-05-20] MEDS ORDERED: cefTRIAXone INJ 1,000 MG in SODIUM CHLORIDE 0.9% INJ 100 ML IV ONE (15:45)
[2017-05-20 15:49] VITALS: BP 107/77; PULSE 62; RESP 15; O2SAT 95
[2017-05-20] MEDS ORDERED: SODIUM CHLORID 0.9% 500 ML INJ 500 ML IV ONE (16:00)
[2017-05-20] MEDS ORDERED: POTASSIUM CHLORIDE 10 MEQ CONTROLLED RELEASE TAB PO ONE (18:00)
--- NOTE | 2017-05-20 18:10 | HHI.HP ---
[facility] Unknown Admission Diagnosis uti, hypokalemia Diagnoses: (1) Suicidal ideation Diagnosis: Principal (2) UTI (urinary tract infection) Diagnosis: Principal (3) Anxiety and depression Diagnosis: Principal Chief Complaint: ' suicidal ideation'. Travel History International Travel<30 Days: No Contact w/Intl Traveler <30 Da: No Traveled to Known Affected Are: No History of Present Illness patient is a 87 y/o female with history of depression/anxiety, dementia, who was brought to ER with suicidal ideation. patient is not a good historian but per ER documents someone heard that she wanted to kill herself. she was placed on Bowman act. at the time of my evaluation she was resting in no acute distress with no reported pain, sob, chest pain. however as noted before information was limited due to her mental status. Review of Systems ROS Limitations: Poor Historian Past Family Social History Past Medical History depression/ anxiety/ vitamin d deficiency. Past Surgical History cholecystectomy/ cataract surgery. 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 Ordered Medications Inpatient Medications Ceftriaxone Sodium 1000 mg/ Sodium Chloride 100 ml @ 200 mls/hr ONCE ONCE IV Last administered on 05/20/17at 15:50; Start 05/20/17 at 15:45; Stop 05/20/17 at 16: 14; Status DC Potassium Bicarb/ Potassium Chloride (K-Lyte Cl Eff) 25 meq ONCE ONCE PO Last administered on 05/20/17at 14:29; Start 05/20/17 at 14:15; Stop 05/20/17 at 14: 16; Status DC Potassium Chloride (KCl) 40 meq ONCE ONCE PO ; Start 05/20/17 at 18:00; Stop 05/20/17 at 18:01 Sodium Chloride 500 ml @ 50 mls/hr Q10H ONCE IV Last administered on 05/20/17at 16:44; Start 05/20/17 at 16:00; Stop 05/21/17 at 01:59 Sodium Chloride (NS Flush) 2 ml UNSCH PRN IV FLUSH FLUSH AFTER USING IV ACCESS ; Start 05/20/17 at 13:00 Family History could not be obtained. Social History no smoking/ drinking. Physical Exam Vital Signs Vital Signs Date Time Temp Pulse Resp B/P (MAP) Pulse Ox O2 Delivery O2 Flow Rate FiO2 05/20/17 15:49 62 15 107/77 (87) 95 Room Air 05/20/17 13:49 65 18 115/64 (81) 95 Room Air 05/20/17 12:44 97.9 53 16 100/50 (67) 96 Physical Exam GENERAL: This is a well-nourished, well-developed patient, in no apparent distress. SKIN: No rashes, ecchymoses or lesions. Cool and dry. HEAD: Atraumatic. Normocephalic. No temporal or scalp tenderness. EYES: Pupils equal round and reactive. Extraocular motions intact. No scleral icterus. No injection or drainage. ENT: Nose without bleeding, purulent drainage or septal hematoma. Throat without erythema, tonsillar hypertrophy or exudate. Uvula midline. Airway patent. NECK: Trachea midline. No JVD or lymphadenopathy. Supple, nontender, no meningeal signs. CARDIOVASCULAR: Regular rate and rhythm without murmurs, gallops, or rubs. RESPIRATORY: Clear to auscultation. Breath sounds equal bilaterally. No wheezes , rales, or rhonchi. GASTROINTESTINAL: Abdomen soft, non-tender, nondistended. No hepato-splenomegaly , or palpable masses. No guarding. MUSCULOSKELETAL: Extremities without clubbing, cyanosis, or edema. No joint tenderness, effusion, or edema noted. No calf tenderness. Negative Homans sign bilaterally. NEUROLOGICAL: Awake and alert. Laboratory Laboratory Tests Test 05/20/17 12:50 05/20/17 13:00 05/20/17 13:10 White Blood Count 7.8 Red Blood Count 3.61 Hemoglobin 11.1 Hematocrit 31.9 Mean Corpuscular Volume 88.3 Mean Corpuscular Hemoglobin 30.8 Mean Corpuscular Hemoglobin Concent 34.8 Red Cell Distribution Width 14.5 Platelet Count 227 Mean Platelet Volume 11.7 Neutrophils (%) (Auto) 63.1 Lymphocytes (%) (Auto) 25.3 Monocytes (%) (Auto) 6.0 Eosinophils (%) (Auto) 4.4 Basophils (%) (Auto) 1.2 Neutrophils # (Auto) 4.9 Lymphocytes # (Auto) 2.0 Monocytes # (Auto) 0.5 Eosinophils # (Auto) 0.3 Basophils # (Auto) 0.1 CBC Comment DIFF FINAL Differential Comment Blood Urea Nitrogen 29 Creatinine 1.70 Random Glucose 134 Total Protein 6.9 Albumin 2.8 Calcium Level 8.2 Alkaline Phosphatase 126 Aspartate Amino Transf (AST/SGOT) 22 Alanine Aminotransferase (ALT/SGPT) 25 Total Bilirubin 0.2 Sodium Level 138 Potassium Level 2.8 Chloride Level 99 Carbon Dioxide Level 30.1 Anion Gap 9 Estimat Glomerular Filtration Rate 29 Magnesium Level 2.2 Ethyl Alcohol Level LESS THAN 3 Urine Color YELLOW Urine Turbidity HAZY Urine pH 6.5 Urine Specific [place] 1.017 Urine Protein 30 Urine Glucose (UA) NEG Urine Ketones NEG Urine Occult Blood SMALL Urine Nitrite NEG Urine Bilirubin NEG Urine Urobilinogen LESS THAN 2.0 Urine Leukocyte Esterase LARGE Urine RBC 5 Urine WBC Urine WBC Clumps MOD Urine Squamous Epithelial Cells 2 Urine Transitional Epithelial Cells <1 Urine Bacteria FEW Urine Hyaline Casts 3 Microscopic Urinalysis Comment CATH-CULTURE IND Urine Opiates Screen NEG Urine Barbiturates Screen POS Urine Amphetamines Screen NEG Urine Benzodiazepines Screen NEG Urine Cocaine Screen NEG Urine Cannabinoids Screen NEG Lactic Acid Level 1.4 Date/Time Source Procedure Growth Status 05/20/17 13:00 Urine Catheterized Urine Urine Culture Pending Received Result Diagram: 05/20/17 1250 05/20/17 1250 Imaging Last Impressions Head CT 05/20/17 1248 Signed Impressions: Service Date/Time: May 15:09 - CONCLUSION: 1. Cerebral atrophy and chronic ischemic small vessel vasculopathy. 2. No acute intracranial abnormality. Marlon Orozco MD Chest X-Ray 05/20/17 1248 Signed Impressions: Service Date/Time: May 13:08 - CONCLUSION: 1. Mild bibasilar atelectasis versus scarring. Rodger Talamantes MD Abdomen/Pelvis CT 05/20/17 0000 Signed Impressions: Service Date/Time: May 15:11 - CONCLUSION: 1. Moderate diverticulosis with no definite inflammatory change. 2. 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 3. Status post cholecystectomy. MD Marcos Evangelista VTE Risk Assessment Caprini VTE Risk Assessment: Mod/High Risk (score >= 2) Caprini Risk Assessment Model Point Value = 1 Point Value = 2 Point Value = 3 Point Value = 5 Age 41-60 Minor surgery BMI > 25 kg/m2 Swollen legs Varicose veins or History of unexplained or recurrent spontaneous Oral contraceptives or hormone replacement Sepsis (< 1 month) Serious lung disease, including pneumonia (< 1 month) Abnormal pulmonary function Acute myocardial infarction Congestive heart failure (< 1 month) History of inflammatory bowel disease Medical patient at bed rest Age 61-74 Arthroscopic surgery Major open surgery (> 45 min) Laparoscopic surgery (> 45 min) Malignancy Confined to bed (> 72 hours) Immobilizing plaster cast Central venous access Age >= 75 History of VTE Family history of VTE Factor V Leiden Prothrombin [id number] Lupus anticoagulant Anticardiolipin antibodies Elevated serum homocysteine Heparin-induced thrombocytopenia Other congenital or acquired thrombophilia Stroke (< 1 month) Elective arthroplasty Hip, pelvis, or leg fracture Acute spinal cord injury (< 1 month) Prophylaxis Regimen Total Risk Factor Score Risk Level Prophylaxis Regimen 0-1 Low Early ambulation 2 Moderate Order ONE of the following: *Sequential Compression Device (SCD) *Heparin 5000 units SQ BID 3-4 Higher Order ONE of the following medications: *Heparin 5000 units SQ TID *Enoxaparin/Lovenox 40 mg SQ daily (WT < 150 kg, CrCl > 30 mL/min) *Enoxaparin/Lovenox 30 mg SQ daily (WT < 150 kg, CrCl > 10-29 mL/min) *Enoxaparin/Lovenox 30 mg SQ BID (WT < 150 kg, CrCl > 30 mL/min) AND/OR *Sequential Compression Device (SCD) 5 or more Highest Order ONE of the following medications: *Heparin 5000 units SQ TID (Preferred with Epidurals) *Enoxaparin/Lovenox 40 mg SQ daily (WT < 150 kg, CrCl > 30 mL/min) *Enoxaparin/Lovenox 30 mg SQ daily (WT < 150 kg, CrCl > 10-29 mL/min) *Enoxaparin/Lovenox 30 mg SQ BID (WT < 150 kg, CrCl > 30 mL/min) AND *Sequential Compression Device (SCD) Assessment and Plan Assessment and Plan A/P - depression/ anxiety/ suicidal ideation- on bowman act; will consult psych. -UTI; start on IV antibiotic- will follow the UC and adjust the antibiotic regimen. -hypokalemia; will replace and monitor. -AAA; f/u as outpatient. -chronic renal insufficiency; will monitor -vitamin D deficiency; will resume home meds -consult PT -DVT prophylaxis with SCD's Discussed Condition With ER physician and the patient. Physician Certification 2 Midnight Certification Type: Admission for Inpatient Services Order for Inpatient Services The services are ordered in accordance with Medicare regulations or non- Medicare payer requirements, as applicable. In the case of services not specified as inpatient-only, they are appropriately provided as inpatient services in accordance with the 2-midnight benchmark. Estimated LOS (days): 2 days is the estimated time the patient will need to remain in the hospital, assuming treatment plan goals are met and no additional complications. Post-Hospital Plan: Not yet determined Problem Qualifiers (1) UTI (urinary tract infection): Qualified Codes: N39.0 - Urinary tract infection, site not specified Bambi Randle MD May 20, 2017 18:10
[2017-05-20 18:43] VITALS: BP 123/63; PULSE 74; RESP 22; TEMP 98.4; O2SAT 94
[2017-05-20 19:26] VITALS: BP 103/54; PULSE 52; RESP 20; TEMP 98.2; O2SAT 93
[2017-05-20] MEDS: PRIMIDONE 50 MG TAB PO SCH (20:00)
[2017-05-20] MEDS: clonazePAM 0.5 MG TAB PO SCH (20:00)
[2017-05-20] MEDS: QUEtiapine FUMARATE 25 MG TAB PO SCH (20:00)
[2017-05-20] MEDS: IMIPRAMINE HCL 25 MG TAB PO SCH (21:00)
[2017-05-20 21:30] VITALS: PULSE 65
[2017-05-21] VITALS (7 sets, daily range): BP systolic 119–149; BP diastolic 56–88; PULSE 64–88; RESP 18–20; TEMP 97.2–98.8; O2SAT 95–98
[2017-05-21] MEDS: PRIMIDONE 50 MG TAB PO SCH ×4 (01:26→17:21)
[2017-05-21] MEDS ORDERED: ACETAMINOPHEN 325 MG TAB PO ONE (06:45)
[2017-05-21 07:54] LABS: BICARBONATE 27.8 MEQ/L (21.0-32.0); CALCIUM 8.5 MG/DL (8.5-10.1); CREATININE 1.67 MG/DL (0.50-1.00)
[2017-05-21] MEDS: CALCITRIOL 0.25 MCG CAP PO SCH ×2 (09:00→11:27)
[2017-05-21] MEDS: clonazePAM 0.5 MG TAB PO SCH ×4 (09:00→22:51)
[2017-05-21] MEDS: FERROUS SULFATE 325 MG (65 MG ELEMENTAL IRON) TAB PO SCH ×2 (09:00→11:27)
[2017-05-21] MEDS: QUEtiapine FUMARATE 25 MG TAB PO SCH ×4 (09:00→22:51)
[2017-05-21] MEDS: ESCITALOPRAM OXALATE 20 MG TAB PO SCH ×2 (09:00→11:28)
--- NOTE | 2017-05-21 12:01 | PD.PSY.CON ---
Provisional Diagnosis Admission Date May 20, 2017 at 15:55 [place] I. Dementia with behavioral disturbances, Alzheimer disease, history of anxiety and bipolar disorder [place] II. Deferred [place] III. Recurrent UTI, hypertension History of Present Illness Service Psychiatry Consult Requested By Medical team Reason for Consult Agitation and suicidal ideation Primary Care Physician Unknown HPI The patient is 87 year-old woman, domiciled in [facility] with her son and , with psychiatric history of bipolar disorder, anxiety, Alzheimer disease, previous psychiatric hospitalizations, no previous suicidal attempts, she has an established outpatient psychiatric care with a private psychiatrist, she is on amitriptyline 200 mg, Seroquel 50 mg twice a day, Lexapro 20 mg, clonazepam 0.5 mg twice a day, who was brought to ER with suicidal ideation. patient is not a good historian but per ER documents someone heard that she wanted to kill herself. she was placed on Bowman act. at the time of my evaluation she was resting in no acute distress with no reported pain, sob, chest pain. She was admitted in the medical floor due to UTI and hypokalemia. Chart was reviewed. Collateral information from her son and also from her visiting nurse Orin,[phone], , was obtained. On psychiatric evaluation today the patient is poorly cooperative, very disorganized, agitated. Patient is crying, very labile, stating that she wants to , unable to provide any meaningful information for the psychiatric assessment. As per visiting nurse, the patient has been very disorganized in the last 2 weeks, increasingly agitated and aggressive with her family members. She has been making persistent and continues paranoid accusations to her nurse and also to her son and . She stated that at baseline the patient is pleasantly confused, but no and aggressive and hostile person. He also reports that the patient has been stating repeatedly that she wants to , and at some moment she grabbed a knife. Review of Systems Constitutional: DENIES: Diaphoretic episodes, Fatigue, Fever, Weight gain, Weight loss, Chills, Dizziness, Change in appetite, Night Sweats Endocrine: DENIES: Abnorml menstrual pattern, Heat/cold intolerance, Polydipsia , Polyuria, Polyphagia Eyes: DENIES: Blurred vision, Diplopia, Eye inflammation, Eye pain, Vision loss , Photosensitivity, Double Vision Ears, nose, mouth, throat: DENIES: Tinnitus, Hearing loss, Vertigo, Nasal discharge, Oral lesions, Throat pain, Hoarseness, Ear Pain, Running Nose, Epistaxis, Sinus Pain, Toothache, Odynophagia Respiratory: DENIES: Apneas, Cough, Snoring, Wheezing, Hemoptysis, Sputum production, Shortness of breath Cardiovascular: DENIES: Chest pain, Palpitations, Syncope, Dyspnea on Exertion , PND, Lower Extremity Edema, Orthopnea, Claudication Gastrointestinal: DENIES: Abdominal pain, Black stools, Bloody stools, Constipation, Diarrhea, Nausea, Vomiting, Difficulty Swallowing, Anorexia Genitourinary: DENIES: Abnormal vaginal bleeding, Dysmenorrhea, Dyspareunia, Sexual dysfunction, Urinary frequency, Urinary incontinence, Urgency, Hematuria , Dysuria, Nocturia, Vaginal discharge Musculoskeletal: DENIES: Joint pain, Muscle aches, Stiffness, Joint Swelling, Back pain, Neck pain Integumentary: DENIES: Abnormal pigmentation, Pruritus, Rash, Nail changes, Breast masses, Breast skin changes, Nipple discharge Hematologic/lymphatic: DENIES: Bruising, Lymphadenopathy Immunologic/allergic: DENIES: Eczema, Urticaria Neurologic: DENIES: Abnormal gait, Headache, Localized weakness, Paresthesias, Seizures, Speech Problems, Tremor, Poor Balance Psychiatric: COMPLAINS OF: Confusion, Suicidal Ideation, DENIES: Anxiety, Mood changes, Depression, Hallucinations, Agitation, Homicidal Ideation, Delusions Past Family Social History Coded Allergies: *MDRO Multi-Drug Resistant Organism (Verified Adverse Reaction, Unknown, ) 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 Active Scripts Hydrocodone-Acetaminophen ([place]) 5-325 mg Tab, 1 TAB PO Q6H Y for PAIN, #10 TAB 0 Refills Prov:Nicole Scott MD 06/09/16 Reported Medications Calcitriol (Calcitriol) 0.25 Mcg Cap, 0.25 MCG PO for Calcium Supplement, #30 CAP 0 Refills 05/20/17 Ergocalciferol (Vitamin D2) 2,000 Unit Tab, 54614 UNITS PO WEDNESDAY for Nutritional Supplement, TAB 0 Refills 05/20/17 Ferrous Sulfate (Iron) 18 Mg Tab, 65 MG PO DAILY 05/20/17 Imipramine HCL (Tofranil) 50 Mg Tab, 200 MG PO HS for Control Depression, TAB 0 Refills 05/20/17 Quetiapine (Seroquel) 100 Mg Tab, 50 MG PO BID, #60 TAB 0 Refills 03/23/16 Primidone (Mysoline) 50 Mg Tab, 100 MG PO TID for Control Seizures, #180 TAB 0 Refills 03/23/16 Escitalopram (Lexapro) 20 Mg Tab, 20 MG PO DAILY, #30 TAB 0 Refills 03/23/16 Clonazepam (Clonazepam) 0.5 Mg Tab, 0.5 MG PO BID, #60 TAB 0 Refills 03/23/16 Current Medications Medications (Trade) Dose Ordered Sig/Jeremy Route Start Time Stop Time Status Last Admin (NS Flush) 2 ml UNSCH PRN IV FLUSH 05/20/17 13:00 Ceftriaxone Sodium 1000 mg/ Sodium Chloride 100 ml @ 200 mls/hr Q24H IV 05/21/17 16:00 (Rocaltrol) 0.25 mcg DAILY PO 05/21/17 09:00 05/21/17 11:27 (KlonoPIN) 0.5 mg BID PO 05/20/17 21:00 05/21/17 11:29 (Lexapro) 20 mg DAILY PO 05/21/17 09:00 05/21/17 11:28 (Tofranil) 200 mg HS PO 05/20/17 21:00 (Mysoline) 100 mg TID PO 05/20/17 20:00 05/21/17 11:28 (SEROquel) 50 mg BID PO 05/20/17 21:00 05/21/17 11:29 (Drisdol) 50,000 units WEDNESDAY PO 05/22/17 18:00 (Ferrous Sulfate) 325 mg DAILY PO 05/21/17 09:00 05/21/17 11:27 Family Psych History No family psychiatric history Social History Patient was born and raised in [place], she lives in an apartment in [facility] with her son and her . Patient's Strengths (min. 2) Family support Physical Exam Patient is agitated, disorganized Vital Signs Vital Signs Date Time Temp Pulse Resp B/P (MAP) Pulse Ox O2 Delivery O2 Flow Rate FiO2 05/21/17 08:03 78 05/21/17 08:00 98.2 18 149/63 (91) 95 05/20/17 15:49 Room Air I/O 05/21/17 05/21/17 05/22/17 08:00 16:00 00:00 Intake Total 1450 ml Balance 1450 ml Lab Results Test 05/20/17 12:50 05/20/17 13:00 05/20/17 13:10 05/21/17 06:40 White Blood Count 7.8 TH/MM3 Red Blood Count 3.61 MIL/MM3 Hemoglobin 11.1 GM/DL Hematocrit 31.9 % Mean Corpuscular Volume 88.3 FL Mean Corpuscular Hemoglobin 30.8 PG Mean Corpuscular Hemoglobin Concent 34.8 % Red Cell Distribution Width 14.5 % Platelet Count 227 TH/MM3 Mean Platelet Volume 11.7 FL Neutrophils (%) (Auto) 63.1 % Lymphocytes (%) (Auto) 25.3 % Monocytes (%) (Auto) 6.0 % Eosinophils (%) (Auto) 4.4 % Basophils (%) (Auto) 1.2 % Neutrophils # (Auto) 4.9 TH/MM3 Lymphocytes # (Auto) 2.0 TH/MM3 Monocytes # (Auto) 0.5 TH/MM3 Eosinophils # (Auto) 0.3 TH/MM3 Basophils # (Auto) 0.1 TH/MM3 CBC Comment DIFF FINAL Differential Comment Blood Urea Nitrogen 29 MG/DL 31 MG/DL Creatinine 1.70 MG/DL 1.67 MG/DL Random Glucose 134 MG/DL 99 MG/DL Total Protein 6.9 GM/DL Albumin 2.8 GM/DL Calcium Level 8.2 MG/DL 8.5 MG/DL Alkaline Phosphatase 126 U/L Aspartate Amino Transf (AST/SGOT) 22 U/L Alanine Aminotransferase (ALT/SGPT) 25 U/L Total Bilirubin 0.2 MG/DL Sodium Level 138 MEQ/L 139 MEQ/L Potassium Level 2.8 MEQ/L 3.5 MEQ/L Chloride Level 99 MEQ/L 104 MEQ/L Carbon Dioxide Level 30.1 MEQ/L 27.8 MEQ/L Anion Gap 9 MEQ/L 7 MEQ/L Estimat Glomerular Filtration Rate 29 ML/MIN 29 ML/MIN Magnesium Level 2.2 MG/DL Ethyl Alcohol Level LESS THAN 3 MG/DL Urine Color YELLOW Urine Turbidity HAZY Urine pH 6.5 Urine Specific [place] 1.017 Urine Protein 30 mg/dL Urine Glucose (UA) NEG mg/dL Urine Ketones NEG mg/dL Urine Occult Blood SMALL Urine Nitrite NEG Urine Bilirubin NEG Urine Urobilinogen LESS THAN 2.0 MG/DL Urine Leukocyte Esterase LARGE Urine RBC 5 /hpf Urine WBC /hpf Urine WBC Clumps MOD Urine Squamous Epithelial Cells 2 /hpf Urine Transitional Epithelial Cells <1 /hpf Urine Bacteria FEW /hpf Urine Hyaline Casts 3 /lpf Microscopic Urinalysis Comment CATH-CULTURE IND Urine Opiates Screen NEG Urine Barbiturates Screen POS Urine Amphetamines Screen NEG Urine Benzodiazepines Screen NEG Urine Cocaine Screen NEG Urine Cannabinoids Screen NEG Lactic Acid Level 1.4 mmol/L Date/Time Source Procedure Growth Status 05/20/17 13:00 Urine Catheterized Urine Urine Culture Pending Received Mental Status Examination Appearance: Disheveled Consciousness: Alert Orientation: Person Speech: Rapid, Incoherent Fund of Knowledge: Inadequate Memory: Impaired Mood: Angry, Oppositional Affect: Irritable, Labile Thought Process & Associations: Loose associations, Disorganized Thought Content: Thought blocking Hallucination Type: None Delusion Type: Bizarre Suicidal Ideation: Yes Suicidal Plan: No Suicidal Intention: No Homicidal Ideation: No Homicidal Plan: No Homicidal Intention: No Insight: Poor Judgment: Poor Assessment & Plan Problem List: (1) Dementia with behavioral disturbance ICD Codes: F03.91 - Unspecified dementia with behavioral disturbance Assessment & Plan: On psychiatric evaluation today the patient is disorganized , agitated, labile, poorly cooperative, unable to provide any meaningful information for the psychiatric assessment. The patient has repeatedly say that she wants to . As per collateral information the patient has been increasingly agitated, paranoia, aggressive at home. Delirium secondary to UTI and hypokalemia could be etiologically responsible for the current presentation , but psychosis secondary to cognitive impairment and depression also are high in the differential. Patient needs psychiatric hospitalization for stabilization and safety. Continue Seroquel 50 twice a day, clonazepam 0.5 twice a day, Lexapro 20 mg. However I will discontinue the amitriptyline 200 mg at bedtime, since the anticholinergic act of this medication can actually impair her delirium and dementia. In case of breakthrough agitation or aggressive behavior 2 mg of Haldol IM are recommended. We'll follow-up. Assessment & Plan Estimated LOS: Rosales Reina MD May 21, 2017 12:00
--- NOTE | 2017-05-21 14:20 | HHI.PR ---
Subjective Remarks Resting in bed, sitter at the bedside Patient is shouting she's not very appropriate but I could calm her down and examine her Denied pain, earlier I discussed with the psychiatry he recommended inpatient psychiatry admission when medically stable Objective Vitals Vital Signs Date Time Temp Pulse Resp B/P (MAP) Pulse Ox O2 Delivery O2 Flow Rate FiO2 05/21/17 12:00 98.0 75 18 119/56 (77) 96 05/21/17 08:03 78 05/21/17 08:00 98.2 77 18 149/63 (91) 95 05/21/17 06:15 97.2 80 19 123/88 (100) 96 05/21/17 00:45 98.8 88 20 130/80 (97) 95 05/20/17 21:30 65 05/20/17 19:26 98.2 52 20 103/54 (70) 93 05/20/17 18:43 98.4 74 22 123/63 (83) 94 05/20/17 15:49 62 15 107/77 (87) 95 Room Air I/O 05/20/17 05/20/17 05/20/17 05/21/17 05/21/17 05/21/17 07:00 15:00 23:00 07:00 15:00 23:00 Intake Total 900 ml 1450 ml Balance 900 ml 1450 ml Intake Oral 800 ml 950 ml IV Total 100 ml 500 ml # Voids 3 3 # Bowel Movements 0 2 1 Result Diagram: 05/20/17 1250 05/21/17 0640 Objective Remarks GENERAL: This is a well-nourished, well-developed patient, in no apparent distress. CARDIOVASCULAR: Regular rate and rhythm without murmurs, gallops, or rubs. RESPIRATORY: Clear to auscultation. Breath sounds equal bilaterally. No wheezes , rales, or rhonchi. GASTROINTESTINAL: Abdomen soft, non-tender, nondistended. Normal active bowel sounds MUSCULOSKELETAL: Extremities without clubbing, cyanosis, or edema. NEURO: Awake alert shouting with no reason not very communicable. Moves all ext x4 A/P Problem List: (1) Suicidal ideation ICD Code: R45.851 - Suicidal ideations (2) UTI (urinary tract infection) ICD Code: N39.0 - Urinary tract infection, site not specified Status: Acute (3) Anxiety and depression ICD Code: F41.9 - Anxiety disorder, unspecified; F32.9 - Major depressive disorder, single episode, unspecified Status: Acute Assessment and Plan 05/20: Urine culture showing Proteus awaiting sensitivity, discussed with psychiatry recommended psychiatry inpatient rehabilitation when medically stable A/P - depression/ anxiety/ suicidal ideation- on farrell act; will consult psych. -UTI; start on IV antibiotic- will follow the UC and adjust the antibiotic regimen. -hypokalemia; will replace and monitor. -AAA; f/u as outpatient. -chronic renal insufficiency; will monitor -vitamin D deficiency; will resume home meds -consult PT -DVT prophylaxis with SCD's Problem Qualifiers (1) UTI (urinary tract infection): Qualified Codes: N39.0 - Urinary tract infection, site not specified Yana Hubbard MD May 21, 2017 14:20
[2017-05-21] MEDS ORDERED: cefTRIAXone INJ 1,000 MG in SODIUM CHLORIDE 0.9% INJ 100 ML IV SCH (16:00)
--- NOTE | 2017-05-21 19:35 | EKG ---
Date Performed: 05/20/2017 Time Performed: 13:47:02 PTAGE: 87 years EKG: Sinus rhythm WITH FIRST DEGREE AV BLOCK LEFT AXIS DEVIATION POSSIBLE OLD INFERIOR MYOCARDIAL INFARCTION ABNORMAL ECG PREVIOUS TRACING : 03/23/2016 10.42 DOCTOR: Jose Gold Interpretating Date/Time 05/21/2017 19:33:55
[2017-05-21] MEDS: IMIPRAMINE HCL 25 MG TAB PO SCH (21:00)
[2017-05-21] MEDS ORDERED: IMIPRAMINE 50 MG PO ONE (22:30)
[2017-05-22] VITALS (7 sets, daily range): BP systolic 128–149; BP diastolic 61–94; PULSE 64–84; RESP 19–20; TEMP 97.8–98.5; O2SAT 94–98
[2017-05-22] MEDS ORDERED: CIPR-9 PO (09:20)
[2017-05-22] MEDS: CALCITRIOL 0.25 MCG CAP PO SCH (09:25)
[2017-05-22] MEDS: QUEtiapine FUMARATE 25 MG TAB PO SCH (09:25)
[2017-05-22] MEDS: PRIMIDONE 50 MG TAB PO SCH ×2 (09:25→12:57)
[2017-05-22] MEDS: ESCITALOPRAM OXALATE 20 MG TAB PO SCH (09:25)
[2017-05-22] MEDS: FERROUS SULFATE 325 MG (65 MG ELEMENTAL IRON) TAB PO SCH (09:25)
[2017-05-22] MEDS: clonazePAM 0.5 MG TAB PO SCH (09:25)
--- NOTE | 2017-05-22 11:07 | HHI.PR ---
Subjective Remarks Resting comfortably in bed No event overnight Denied chest and or short of breath No fever or chills Objective Vitals Vital Signs Date Time Temp Pulse Resp B/P (MAP) Pulse Ox O2 Delivery O2 Flow Rate FiO2 05/22/17 09:51 84 05/22/17 08:00 98.1 64 20 149/94 (112) 97 05/22/17 04:00 98.3 82 20 130/76 (94) 98 05/22/17 03:46 69 05/22/17 00:00 97.8 78 19 128/72 (90) 97 05/21/17 23:44 64 05/21/17 20:20 98.1 76 20 120/64 (82) 98 05/21/17 12:00 98.0 75 18 119/56 (77) 96 I/O 05/21/17 05/21/17 05/21/17 05/22/17 05/22/17 05/22/17 07:00 15:00 23:00 07:00 15:00 23:00 Intake Total 1450 ml 1000 ml 850 ml Balance 1450 ml 1000 ml 850 ml Intake Oral 950 ml 1000 ml 850 ml IV Total 500 ml # Voids 3 2 2 # Bowel Movements 2 1 0 0 Result Diagram: 05/20/17 1250 05/21/17 0640 Objective Remarks GENERAL: This is a well-nourished, well-developed patient, in no apparent distress. CARDIOVASCULAR: Regular rate and rhythm without murmurs, gallops, or rubs. RESPIRATORY: Clear to auscultation. Breath sounds equal bilaterally. No wheezes , rales, or rhonchi. GASTROINTESTINAL: Abdomen soft, non-tender, nondistended. Normal active bowel sounds MUSCULOSKELETAL: Extremities without clubbing, cyanosis, or edema. NEURO: Awake alert shouting with no reason not very communicable. Moves all ext x4 A/P Problem List: (1) Suicidal ideation ICD Code: R45.851 - Suicidal ideations (2) UTI (urinary tract infection) ICD Code: N39.0 - Urinary tract infection, site not specified Status: Acute (3) Anxiety and depression ICD Code: F41.9 - Anxiety disorder, unspecified; F32.9 - Major depressive disorder, single episode, unspecified Status: Acute Assessment and Plan 05/21: Urine culture showing Proteus awaiting sensitivity, discussed with psychiatry recommended psychiatry inpatient rehabilitation when medically stable 2/3: Proteus UTI placed on Cipro, medically clear to go to psych [facility] A/P - depression/ anxiety/ suicidal ideation- on farrell act; will consult psych. -UTI; start on IV antibiotic- will follow the UC and adjust the antibiotic regimen. -hypokalemia; will replace and monitor. -AAA; f/u as outpatient. -chronic renal insufficiency; will monitor -vitamin D deficiency; will resume home meds -consult PT -DVT prophylaxis with SCD's Problem Qualifiers (1) UTI (urinary tract infection): Qualified Codes: N39.0 - Urinary tract infection, site not specified Yana Hubbard MD May 22, 2017 11:07
[2017-05-22] MEDS ORDERED: ERGOCALCIFEROL (VIT D2) 50,000 UNIT CAP PO SCH (18:00)
== END 2017-05-22 15:57 | DRG 690 ==
LOC: NEPE 12:33 → NEDA 15:55 → N05A 18:40
PROVIDERS: ADMIT Hospitalist; ATTEND Hospitalist
DX: N39.0 Urinary tract infection, site not specified (principal); B96.4 Proteus (mirabilis) (morganii) as the cause of diseases classified elsewhere; R45.851 Suicidal ideations; G30.9 Alzheimer's disease, unspecified; F02.81 Dementia in other diseases classified elsewhere, unspecified severity, with behavioral disturbance; E87.6 Hypokalemia; F31.9 Bipolar disorder, unspecified; F41.9 Anxiety disorder, unspecified; F32.9 Major depressive disorder, single episode, unspecified; I12.9 Hypertensive chronic kidney disease with stage 1 through stage 4 chronic kidney disease, or unspecified chronic kidney disease; N18.9 Chronic kidney disease, unspecified; R25.1 Tremor, unspecified; E55.9 Vitamin D deficiency, unspecified; I71.4 Abdominal aortic aneurysm, without rupture; Z87.891 Personal history of nicotine dependence
CPT/HCPCS: 70450; 71045; 74176; 80048; 80053; 80307; 81001; 83605; 83735; 85025; 87077; 87086; 87186; 93005; J0696; J7040

== ENCOUNTER 2017-05-22 16:16 | Inpatient (IN) | payer OTHER, MEDICARE ==
[~2017-05-22] VITALS: Ht 167.6 cm; Wt 79.7 kg
[~2017-05-22 16:16] MED LIST changes: -ACET500T3 PO; +CALC0.25 PO; +CIPR-9 PO; -ERGO1CAP10 PO; +ERGO2000 PO; -FERR1TAB58 PO; -IMIP50TA PO; +IRON18TA PO; +TOFR50TA PO
[2017-05-22 16:24] VITALS: BP 129/60; PULSE 71; RESP 16; TEMP 98.3; O2SAT 97
[2017-05-22 17:00] VITALS: BP 129/56; PULSE 72; RESP 16; TEMP 97.8; O2SAT 97
[2017-05-22] MEDS ORDERED: LORazepam 0.5 MG TAB PO PRN (18:30)
[2017-05-22] MEDS ORDERED: MAGNESIUM HYDROXIDE SUSP 30 ML CUP PO PRN (18:30)
[2017-05-22] MEDS ORDERED: ALUMINUM/MAGNESIUM/SIMETH 30 ML CUP PO PRN (18:30)
[2017-05-22] MEDS ORDERED: LORazepam 1 MG TAB PO PRN (18:30)
[2017-05-22] MEDS ORDERED: ACETAMINOPHEN 325 MG TAB PO PRN (18:30)
[2017-05-22] MEDS ORDERED: LORazepam 2 MG/ML VIAL IM PRN ×2 (18:30)
[2017-05-22] MEDS: CIPROFLOXACIN 500 MG TAB PO SCH (20:50)
[2017-05-22] MEDS: clonazePAM 0.5 MG TAB PO SCH (21:00)
[2017-05-22] MEDS: QUEtiapine FUMARATE 100 MG TAB PO SCH (21:00)
[2017-05-23] MEDS: CIPROFLOXACIN 500 MG TAB PO SCH ×2 (08:49→21:27)
[2017-05-23] MEDS: clonazePAM 0.5 MG TAB PO SCH ×2 (08:49→21:21)
[2017-05-23] MEDS: QUEtiapine FUMARATE 100 MG TAB PO SCH ×2 (08:49→21:21)
[2017-05-23] MEDS: ESCITALOPRAM OXALATE 20 MG TAB PO SCH (08:49)
[2017-05-23] MEDS: REMOVE OLD PATCH T-DERMAL SCH (08:54)
[2017-05-23] MEDS: NICOTINE 21 MG/24 HR PATCH T-DERMAL SCH (08:56)
[2017-05-23 08:58] LABS: BICARBONATE 26.8 MEQ/L (21.0-32.0); BLOOD UREA NITROGEN 32 MG/DL (7-18); CALCIUM 8.6 MG/DL (8.5-10.1); CHLORIDE 106 MEQ/L (98-107); CHOLESTEROL 211 MG/DL (120-200); CREATININE 1.33 MG/DL (0.50-1.00); GLOMERULAR FILTRATION RATE 38 ML/MIN (>89); GLUCOSE,RANDOM 91 MG/DL (74-106); SODIUM (NA) 139 MEQ/L (136-145); TRIGLYCERIDES 111 MG/DL (42-150)
[2017-05-23 09:00] LABS: CHOLESTEROL/ HDL RATIO 3.98 RATIO; LDL CHOLESTEROL 136 MG/DL (0-99)
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
[2017-05-23 12:08] LABS: HEMOGLOBIN A1C 5.9 % (4.3-6.0)
--- NOTE | 2017-05-23 15:28 | PD.CONS ---
HPI Service [facility] Hospitalists Consult Requested By Dr Vila Reason for Consult medical management Primary Care Physician Lacie Christine MD Diagnoses: (1) Generalized anxiety disorder (2) Neurocognitive disorder (3) Hyperkalemia (4) Chest pain (5) Chronic kidney disease, stage 3 (6) Dementia with behavioral disturbance History of Present Illness 85-year-old female with known history of dementia, Alzheimer, hypertension, chronic kidney disease stage III. The hospitalist is consulted for medical management. Patient is in bed, says she is forced to stay and eat with other people and she is having too many people in her room. She is a poor historian, with very poor insight and judgement. No n/v/d/c. Denies chest pain or sob. No n/v/d/c. Says she did not et much today but says she doesn't remember . Says she has been in the hospital sick for some time but she feels better now. Says she has pain in her legs and is not able to walk. She is following commands. 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 Past Medical History Anxiety/depression Hypertension Hyperlipidemia Past Surgical History Cataract surgery Tonsillectomy Lump removed from neck, reportedly benign Reported Medications Reported Meds & Active Scripts Active Cipro (Ciprofloxacin HCl) 500 Mg Tab 500 Mg PO BID [place] (Hydrocodone-Acetaminophen) 5-325 mg Tab 1 Tab PO Q6H PRN Reported Calcitriol 0.25 Mcg Cap 0.25 Mcg PO Vitamin D2 (Ergocalciferol) 2,000 Unit Tab 50,000 Units PO WEDNESDAY Iron (Ferrous Sulfate) 18 Mg Tab 65 Mg PO DAILY Tofranil (Imipramine HCl) 50 Mg Tab 200 Mg PO HS Seroquel (Quetiapine Fumarate) 100 Mg Tab 50 Mg PO BID Mysoline (Primidone) 50 Mg Tab 100 Mg PO TID Lexapro (Escitalopram Oxalate) 20 Mg Tab 20 Mg PO DAILY Clonazepam 0.5 Mg Tab 0.5 Mg PO BID Family History Questionable family history of heart disease Social History Quit smoking in 2010. Has smoked 1 pack per day for 50 years. Denies alcohol or illicit drug use. Physical Exam Vital Signs Vital Signs Date Time Temp Pulse Resp B/P (MAP) Pulse Ox O2 Delivery O2 Flow Rate FiO2 05/22/17 17:00 97.8 72 16 129/56 (80) 97 05/22/17 16:24 98.3 71 16 129/60 (83) 97 Physical Exam GENERAL: This is a confused elderly lady, well-nourished, well-developed patient, in no apparent distress. SKIN: No rashes, ecchymoses or lesions. Cool and dry. HEAD: Atraumatic. Normocephalic. No temporal or scalp tenderness. EYES: Pupils equal round and reactive. Extraocular motions intact. No scleral icterus. No injection or drainage. ENT: Nose without bleeding, purulent drainage or septal hematoma. Throat without erythema, tonsillar hypertrophy or exudate. Uvula midline. Airway patent. NECK: Trachea midline. No JVD or lymphadenopathy. Supple, nontender, no meningeal signs. CARDIOVASCULAR: Regular rate and rhythm without murmurs, gallops, or rubs. RESPIRATORY: Clear to auscultation. Breath sounds equal bilaterally. No wheezes , rales, or rhonchi. GASTROINTESTINAL: Abdomen soft, non-tender, nondistended. No hepato-splenomegaly , or palpable masses. No guarding. MUSCULOSKELETAL: Extremities without clubbing, cyanosis, or edema. No joint tenderness, effusion, or edema noted. No calf tenderness. Negative Homans sign bilaterally. NEUROLOGICAL: Awake and alert. Knows her name and that she is in the hospital, poor insight. Follows commands. Cranial nerves grossly intact. Motor and sensory grossly within normal limits. Five out of 5 muscle strength in all muscle groups. Normal speech. Laboratory Laboratory Tests Test 05/23/17 07:15 Blood Urea Nitrogen 32 Creatinine 1.33 Random Glucose 91 Calcium Level 8.6 Sodium Level 139 Potassium Level 4.2 Chloride Level 106 Carbon Dioxide Level 26.8 Anion Gap 6 Estimat Glomerular Filtration Rate 38 Hemoglobin A1c 5.9 Triglycerides Level 111 Cholesterol Level 211 LDL Cholesterol 136 HDL Cholesterol 53.0 Cholesterol/HDL Ratio 3.98 Result Diagram: 05/23/17 0715 Assessment and Plan Assessment and Plan Anxiety/depression with underlying dementia management per psych Hypertension Blood pressure stable this time Continue home meds Chronic kidney disease stage III, stable Continue monitor renal function Avoid nephrotoxic medications UTI: Continue cipro PO DVT prevention- ambulation Desi Barnes MD May 23, 2017 15:28
[2017-05-23 16:21] VITALS: BP 130/68; PULSE 70; RESP 20; TEMP 97.6; O2SAT 99
[2017-05-24 06:13] VITALS: BP 138/71; PULSE 79; RESP 16; TEMP 97.8; O2SAT 97
[2017-05-24] MEDS: QUEtiapine FUMARATE 100 MG TAB PO SCH ×2 (08:33→22:02)
[2017-05-24] MEDS: CIPROFLOXACIN 500 MG TAB PO SCH ×2 (08:33→22:01)
[2017-05-24] MEDS: clonazePAM 0.5 MG TAB PO SCH ×2 (08:33→22:02)
[2017-05-24] MEDS: ESCITALOPRAM OXALATE 20 MG TAB PO SCH (08:33)
[2017-05-24] MEDS: REMOVE OLD PATCH T-DERMAL SCH (09:00)
[2017-05-24] MEDS: NICOTINE 21 MG/24 HR PATCH T-DERMAL SCH (09:00)
--- NOTE | 2017-05-24 14:19 | HHI.PR ---
Subjective Remarks Follow-up visit dementia, Alzheimer's disease, HTN, CKD 3, UTI. Patient seen and examined today lying in bed. Reports she is doing well. Confused but able to follow commands. Denies chest pain, palpitations. Denies fevers, chills, nausea, vomiting. States she is doing okay and that nothing is bothering her. Objective Vitals Vital Signs Date Time Temp Pulse Resp B/P (MAP) Pulse Ox O2 Delivery O2 Flow Rate FiO2 05/24/17 06:13 97.8 79 16 138/71 (93) 97 05/23/17 16:21 97.6 70 20 130/68 (88) 99 I/O 05/23/17 05/23/17 05/23/17 05/24/17 05/24/17 05/24/17 06:59 14:59 22:59 06:59 14:59 22:59 Intake Total 840 ml 240 ml 1440 ml Balance 840 ml 240 ml 1440 ml Intake Oral 840 ml 240 ml 1440 ml # Voids 1 2 # Bowel Movements 1 Result Diagram: 05/23/17 0715 Objective Remarks GENERAL: This is an obese, well-developed patient, in no apparent distress. SKIN: Warm and dry HEENT: Normocephalic. Pupils equal round and reactive. Nose without bleeding. Airway patent. NECK: Trachea midline. CARDIOVASCULAR: Regular rate and rhythm without murmurs, gallops, or rubs. RESPIRATORY: Clear to auscultation. Breath sounds equal bilaterally. No wheezes , rales, or rhonchi. GASTROINTESTINAL: Abdomen soft, non-tender, protuberant. Bowel Sounds normoactive x4. MUSCULOSKELETAL: Extremities without clubbing, cyanosis. Bilateral lower extremity trace edema. NEUROLOGICAL: Awake and alert. Confuse. No focal neuro deficit. Moves all extremities. Normal speech. A/P Problem List: (1) Generalized anxiety disorder ICD Code: F41.1 - Generalized anxiety disorder Status: Acute (2) Neurocognitive disorder ICD Code: F99 - Mental disorder, not otherwise specified Status: Acute (3) Hyperkalemia ICD Code: E87.5 - Hyperkalemia Status: Acute (4) Chest pain ICD Code: R07.9 - Chest pain, unspecified Status: Acute (5) Chronic kidney disease, stage 3 ICD Code: N18.3 - Chronic kidney disease, stage 3 (moderate) Status: Acute (6) Dementia with behavioral disturbance ICD Code: F03.91 - Unspecified dementia with behavioral disturbance Assessment and Plan 85-year-old female with known history of dementia, Alzheimer, hypertension, chronic kidney disease stage III who came into the hospital for suicidal ideation. Suicidal ideation, anxiety/depression, dementia - Managed by psychiatry team HTN - Clonidine when necessary - BP trend within normal HLD - Lipid profile cholesterol 211, LDL 136 - Start low-dose atorvastatin 10mg daily - Follow-up lipid profile in 3 months as an outpatient Chronic kidney disease stage III, stable - Patient at baseline 1.12-1.4 - Continue monitor renal function - Avoid nephrotoxic medications Urinary tract infection - Continue Cipro, S/P sensitive to Proteus mirabilis - Encouraged by mouth fluid hydration DVT prop ambulation Enedelia Mcdaniel May 24, 2017 14:19
[2017-05-24] MEDS ORDERED: MAGNESIUM HYDROXIDE SUSP 30 ML CUP PO PRN (15:30)
[2017-05-24] MEDS ORDERED: ALUMINUM/MAGNESIUM/SIMETH 30 ML CUP PO PRN (15:30)
[2017-05-24] MEDS ORDERED: hydrOXYzine HCL 50 MG TAB PO PRN (15:30)
--- NOTE | 2017-05-24 15:34 | HHI.PYPN ---
Subjective Remarks Patient seen in her bed with nurse Chris, nurse practitioner Rosa Elena, medical student . Patient labile superficial silly and childlike somewhat guarded noise asking is this okay of that okay. She disoriented in all 4 spheres. Age compliant with medications. We need to meet with family to determine course of action treatment medications and possible placement issues Review of Systems ROS Limitations: Altered Mental Status Mental Status Examination Appearance: Appropriate Consciousness: Alert Orientation: Person Speech: Rapid Language: Adequate Fund of Knowledge: Inadequate Memory: Impaired Mood: Angry Affect: Labile Thought Process & Associations: Loose associations, Disorganized Thought Content: Bizarre thinking Hallucination Type: None Delusion Type: Paranoid Suicidal Ideation: No Suicidal Plan: No Suicidal Intention: No Homicidal Ideation: No Homicidal Plan: No Homicidal Intention: No Insight: Poor Judgment: Poor Results Vitals/IOs Vital Signs Date Time Temp Pulse Resp B/P (MAP) Pulse Ox O2 Delivery O2 Flow Rate FiO2 05/24/17 06:13 97.8 79 16 138/71 (93) 97 Intake and Output 05/24/17 05/24/17 05/25/17 08:00 16:00 00:00 Intake Total 240 ml 1440 ml Balance 240 ml 1440 ml Assessment & Plan Problem List: (1) DEMENTIA IN OTH DISEASES CLASSD ELSWHR W BEHAVIORAL DISTURB ICD Codes: F02.81 - DEMENTIA IN OTH DISEASES CLASSD ELSWHR W BEHAVIORAL DISTURB (2) ALZHEIMER'S DISEASE WITH LATE ONSET ICD Codes: G30.1 - ALZHEIMER'S DISEASE WITH LATE ONSET Assessment & Plan Estimated LOS: days patient diffusely confused disoriented and demented., Childlike superficial and somewhat vigilant. Justification for Cont. Inpt. At this time patient decompensated placed a lower level of care Discharge Planning We need to discuss this with patient's family Request HC Surrog/Guard Advoc?: Yes Moreno Cleveland MD May 24, 2017 15:34
[2017-05-24 17:12] LABS: ALBUMIN 2.6 GM/DL (3.4-5.0); ALT (GPT) 19 U/L (10-53); AST (GOT) 23 U/L (15-37); DIRECT BILIRUBIN ADULT LESS THAN 0.1 MG/DL (0.0-0.2)
[2017-05-24 17:13] LABS: ALKALINE PHOSPHATASE 107 U/L (45-117); INDIRECT BILIRUBIN 0.1 MG/DL (0.0-0.8); TOTAL BILIRUBIN ADULT 0.2 MG/DL (0.2-1.0); TOTAL PROTEIN 6.4 GM/DL (6.4-8.2)
[2017-05-24 18:07] VITALS: BP 157/69; PULSE 63; RESP 16; TEMP 98.1; O2SAT 96
[2017-05-25] MEDS: CIPROFLOXACIN 500 MG TAB PO SCH ×2 (08:54→21:00)
[2017-05-25] MEDS: ESCITALOPRAM OXALATE 20 MG TAB PO SCH (08:54)
[2017-05-25] MEDS: QUEtiapine FUMARATE 100 MG TAB PO SCH ×2 (08:54→21:00)
[2017-05-25] MEDS: ATORVASTATIN 10 MG TAB PO SCH (08:54)
[2017-05-25] MEDS: clonazePAM 0.5 MG TAB PO SCH ×2 (08:54→21:00)
[2017-05-25] MEDS: NICOTINE 21 MG/24 HR PATCH T-DERMAL SCH (09:00)
[2017-05-25] MEDS: REMOVE OLD PATCH T-DERMAL SCH (09:00)
--- NOTE | 2017-05-25 10:59 | HHI.PR ---
Subjective Remarks Follow up for UTI, dementia. The patient is seen in the day room. She initially states she is doing just fine, but then later complains of abdominal pain. She locates the pain to the LLQ however unable to further describe her symptoms. She denies any constipation or diarrhea. She states her last BM was this morning. Denies any nausea or vomiting. She states she just has the pain. She report occasional urinary incontinence but denies any dysuria or increased urgency or frequency of urination. Denies fevers/chills. She states she is eating well. Denies any other medical complaints at this time. Objective Vitals Vital Signs Date Time Temp Pulse Resp B/P (MAP) Pulse Ox O2 Delivery O2 Flow Rate FiO2 05/24/17 18:07 98.1 63 16 157/69 (98) 96 I/O 05/24/17 05/24/17 05/24/17 05/25/17 05/25/17 05/25/17 07:00 15:00 23:00 07:00 15:00 23:00 Intake Total 240 ml 1440 ml 840 ml 240 ml Balance 240 ml 1440 ml 840 ml 240 ml Intake Oral 240 ml 1440 ml 840 ml 240 ml # Voids 2 3 1 # Bowel Movements 1 1 Result Diagram: 05/23/17 0715 Imaging 05/20/17 - CT abdomen/pelvis shows moderate diverticulosis with no definite inflammatory changes; mild aneurysmal dilatation of the aorta measuring up to 3.1cm. Objective Remarks GENERAL: Well-nourished, well-developed elderly female patient in [facility]. SKIN: Warm and dry. No rash. HEENT: Normocephalic. Atraumatic. Pupils equal and round. Mucous membranes pink and moist. NECK: Supple. Trachea midline. CARDIOVASCULAR: Regular rate and rhythm. S1, S2 noted. No murmur appreciated. RESPIRATORY: No accessory muscle use. Clear to auscultation. Breath sounds equal bilaterally. GASTROINTESTINAL: Abdomen soft, nondistended, mild diffuse abdominal tenderness to palpation; worse at LLQ. Normoactive bowel sounds x4. MUSCULOSKELETAL: No obvious deformities. Extremities without clubbing, cyanosis , or edema. NEUROLOGICAL: Awake and alert. No obvious cranial nerve deficits. Motor grossly within normal limits. Normal speech. Medications and IVs Current Medications Medications (Trade) Dose Ordered Sig/Jeremy Route Start Time Stop Time Status Last Admin (Cipro) 500 mg BID PO 05/22/17 21:00 05/28/17 20:59 05/25/17 08:54 (KlonoPIN) 0.5 mg BID PO 05/22/17 21:00 05/25/17 08:54 (Lexapro) 20 mg DAILY PO 05/23/17 09:00 05/25/17 08:54 (SEROquel) 50 mg BID PO 05/22/17 21:00 05/25/17 08:54 (Ativan) 0.5 mg Q12H PRN PO 05/22/17 18:30 (Ativan Inj) 0.5 mg Q12H PRN IM 05/22/17 18:30 (Mag-Al Plus Susp Liq) 30 ml Q6H PRN PO 05/22/17 18:30 05/23/17 21:25 (Habitrol 21 Mg Patch.24 Hr) 1 patch DAILY T-DERMAL 05/23/17 09:00 Miscellaneous Information 1 DAILY T-DERMAL 05/23/17 09:00 (Lipitor) 10 mg DAILY PO 05/25/17 09:00 05/25/17 08:54 (Tylenol) 650 mg Q4H PRN PO 05/24/17 15:30 (Milk Of Magnesia Liq) 30 ml DAILY PRN PO 05/24/17 15:30 (Mag-Al Plus Susp Liq) 30 ml Q6H PRN PO 05/24/17 15:30 (Atarax) 50 mg Q6H PRN PO 05/24/17 15:30 A/P Problem List: (1) Generalized anxiety disorder ICD Code: F41.1 - Generalized anxiety disorder Status: Acute (2) Neurocognitive disorder ICD Code: F99 - Mental disorder, not otherwise specified Status: Acute (3) Hyperkalemia ICD Code: E87.5 - Hyperkalemia Status: Acute (4) Chest pain ICD Code: R07.9 - Chest pain, unspecified Status: Acute (5) Chronic kidney disease, stage 3 ICD Code: N18.3 - Chronic kidney disease, stage 3 (moderate) Status: Acute (6) Dementia with behavioral disturbance ICD Code: F03.91 - Unspecified dementia with behavioral disturbance Assessment and Plan 85-year-old female with known history of dementia, Alzheimer, hypertension, chronic kidney disease stage III who came into the hospital for suicidal ideation. Suicidal ideation, anxiety/depression, dementia -Continue management per psychiatry team Hypertension: chronic, stable, BP fairly well controlled - Clonidine prn - BP trend within normal Hyperlipidemia: acute on chronic - Lipid profile cholesterol 211, LDL 136 - Start low-dose Lipitor 10mg daily - Follow-up lipid profile in 3 months as an outpatient [facility] on Chronic kidney disease stage III: Creatinine increased to 1.7, Baseline Cr 1.2 in Nov 2016 -Avoid nephrotoxins -Encourage oral intake -Repeat BMP shows improvement, Cr 1.33 -Outpatient f/up BMP in 1 week Urinary tract infection: acute -Urine culture with Proteus mirabilis, sensitive to Cipro -Continue Cipro with stop date 05/28 Abdominal Pain: unclear etiology. CT abdomen/pelvis done on 05/20/17 reviewed, shows moderate diverticulosis with no definite inflammatory changes; mild aneurysmal dilatation of the aorta measuring up to 3.1cm. -Check abdominal xray -Check labs including CBC, CMP, lipase DVT prophylaxis: ambulation Shirley Metcalf PA-C May 25, 2017 10:59 am
[2017-05-25] MEDS ORDERED: cloNIDine HCL 0.1 MG TAB PO PRN (11:15)
[2017-05-25 14:04] VITALS: O2SAT 98
--- NOTE | 2017-05-25 15:18 | RADRPT ---
EXAM DATE/TIME: 05/25/2017 14:00 [place] COMPARISON: CT ABDOMEN & PELVIS W/O CONTRAST, May 20, 2017, 15:11. INDICATIONS : Abdomen pain. MEDICAL HISTORY : dementia, hypertension, Alzheimer's, renal disease SURGICAL HISTORY : Cholecystectomy. ENCOUNTER: Initial ACUITY: 4 - 6 days PAIN SCORE: Non-responsive. LOCATION: Bilateral abdomen FINDINGS: There is no bowel obstruction or ileus. Degenerative changes and scoliosis of the lumbar spine are no che. The patient is status post cholecystectomy. CONCLUSION: 1. No bowel obstruction or ileus. 2. Degenerative changes and scoliosis of the lumbar spine. Franck Parra MD on May 25, 2017 at 15:14 Board Certified Radiologist. This report was verified electronically.
--- NOTE | 2017-05-25 16:19 | HHI.PYPN ---
Subjective Remarks Patient seen in her room with floor staff, also with nurse practitioner Rosa Elena and medical student , patient continues overall calm pleasant with me pleasantly confused and disoriented, compliant medications. For now continue treatment Review of Systems Except as stated in HPI: all other systems reviewed are Neg Mental Status Examination Appearance: Appropriate Consciousness: Alert Orientation: Person Speech: Rapid Language: Adequate Fund of Knowledge: Inadequate Memory: Impaired Mood: Angry Affect: Labile Thought Process & Associations: Loose associations, Disorganized Thought Content: Bizarre thinking Hallucination Type: None Delusion Type: Paranoid Suicidal Ideation: No Suicidal Plan: No Suicidal Intention: No Homicidal Ideation: No Homicidal Plan: No Homicidal Intention: No Insight: Poor Judgment: Poor Results Vitals/IOs Vital Signs Date Time Temp Pulse Resp B/P (MAP) Pulse Ox O2 Delivery O2 Flow Rate FiO2 05/25/17 14:04 98 21 05/24/17 18:07 98.1 63 16 157/69 (98) Intake and Output 05/25/17 05/25/17 05/26/17 08:00 16:00 00:00 Intake Total 240 ml Balance 240 ml Assessment & Plan Problem List: (1) DEMENTIA IN OTH DISEASES CLASSD ELSWHR W BEHAVIORAL DISTURB ICD Codes: F02.81 - DEMENTIA IN OTH DISEASES CLASSD ELSWHR W BEHAVIORAL DISTURB (2) ALZHEIMER'S DISEASE WITH LATE ONSET ICD Codes: G30.1 - ALZHEIMER'S DISEASE WITH LATE ONSET Assessment & Plan Estimated LOS: days patient continues demented the behavior problems at this time, compliant medication. Justification for Cont. Inpt. At this time patient decompensated placed in a lower level of care Discharge Planning Patient remains problematic Request HC Surrog/Guard Advoc?: Yes Moreno Cleveland MD May 25, 2017 16:19
[2017-05-25 17:25] VITALS: O2SAT 98
[2017-05-25 18:41] VITALS: BP 136/63; PULSE 71; RESP 16; TEMP 98.4; O2SAT 97
[2017-05-26 06:16] VITALS: BP 158/73; PULSE 79; RESP 16; TEMP 98.1; O2SAT 96
[2017-05-26] MEDS: QUEtiapine FUMARATE 100 MG TAB PO SCH ×2 (08:56→20:20)
[2017-05-26] MEDS: ACETAMINOPHEN 325 MG TAB PO PRN (08:56)
[2017-05-26] MEDS: ESCITALOPRAM OXALATE 20 MG TAB PO SCH (08:57)
[2017-05-26] MEDS: REMOVE OLD PATCH T-DERMAL SCH (08:57)
[2017-05-26] MEDS: NICOTINE 21 MG/24 HR PATCH T-DERMAL SCH (08:57)
[2017-05-26] MEDS: ATORVASTATIN 10 MG TAB PO SCH (08:57)
[2017-05-26] MEDS: CIPROFLOXACIN 500 MG TAB PO SCH ×2 (08:57→20:19)
[2017-05-26] MEDS: clonazePAM 0.5 MG TAB PO SCH ×2 (08:57→20:19)
--- NOTE | 2017-05-26 12:03 | HHI.PYPN ---
Subjective Remarks Patient sitting in dayroom with nurse practitioner Rosa Elena and nurse Camelia. Chart reviewed. Patient compliant medication. Patient calm pleasant with me diffusely confused and well 4 spheres. Patient is been no significant behavioral problems. Patient scheduled for [employer] tomorrow. Review of Systems Except as stated in HPI: all other systems reviewed are Neg Mental Status Examination Appearance: Appropriate Consciousness: Alert Orientation: Person Speech: Rapid Language: Adequate Fund of Knowledge: Inadequate Memory: Impaired Mood: Angry Affect: Labile Thought Process & Associations: Loose associations, Disorganized Thought Content: Bizarre thinking Hallucination Type: None Delusion Type: Paranoid Suicidal Ideation: No Suicidal Plan: No Suicidal Intention: No Homicidal Ideation: No Homicidal Plan: No Homicidal Intention: No Insight: Poor Judgment: Poor Results Vitals/IOs Vital Signs Date Time Temp Pulse Resp B/P (MAP) Pulse Ox O2 Delivery O2 Flow Rate FiO2 05/26/17 06:16 98.1 79 16 158/73 (101) 96 05/25/17 17:25 21 Assessment & Plan Problem List: (1) DEMENTIA IN OTH DISEASES CLASSD ELSWHR W BEHAVIORAL DISTURB ICD Codes: F02.81 - DEMENTIA IN OTH DISEASES CLASSD ELSWHR W BEHAVIORAL DISTURB (2) ALZHEIMER'S DISEASE WITH LATE ONSET ICD Codes: G30.1 - ALZHEIMER'S DISEASE WITH LATE ONSET Assessment & Plan Patient continues demented and confused but no significant behavioral problems. Compliant medication. For now continue treatment. Patient scheduled for [employer] tomorrow Justification for Cont. Inpt. At this time patient decompensate if placed in the lower level of care Discharge Planning Placement continues to be investigated Request HC Surrog/Guard Advoc?: Yes Moreno Cleveland MD May 26, 2017 11:58
--- NOTE | 2017-05-26 14:00 | HHI.PR ---
Subjective Remarks Follow up for UTI, dementia, abdominal pain. The patient reports feeling well today. She denies any further complaints of abdominal pain. Denies any nausea/ vomiting, diarrhea, constipation, fevers/chills. She is tolerating oral intake. She has no other complaints to report at this time. Discussed with RN. Objective Vitals Vital Signs Date Time Temp Pulse Resp B/P (MAP) Pulse Ox O2 Delivery O2 Flow Rate FiO2 05/26/17 06:16 98.1 79 16 158/73 (101) 96 05/25/17 18:41 98.4 71 16 136/63 (87) 97 05/25/17 17:25 98 21 05/25/17 14:04 98 21 I/O 05/25/17 05/25/17 05/25/17 05/26/17 05/26/17 05/26/17 07:00 15:00 23:00 07:00 15:00 23:00 Intake Total 240 ml 480 ml Balance 240 ml 480 ml Intake Oral 240 ml 480 ml # Voids 1 1 2 # Bowel Movements 0 Result Diagram: 05/23/17 0715 Imaging Last Impressions Abdomen X-Ray 05/25/17 0000 Signed Impressions: Service Date/Time: Thursday, May 25, 2017 14:00 - CONCLUSION: 1. No bowel obstruction or ileus. 2. Degenerative changes and scoliosis of the lumbar spine. Franck Parra MD Objective Remarks GENERAL: Well-nourished, well-developed elderly female patient in [facility]. SKIN: Warm and dry. No rash. HEENT: Normocephalic. Atraumatic. Pupils equal and round. Mucous membranes pink and moist. NECK: Supple. Trachea midline. CARDIOVASCULAR: Regular rate and rhythm. S1, S2 noted. No murmur appreciated. RESPIRATORY: No accessory muscle use. Clear to auscultation. Breath sounds equal bilaterally. GASTROINTESTINAL: Abdomen soft, nondistended, nontender. Normoactive bowel sounds x4. MUSCULOSKELETAL: No obvious deformities. Extremities without clubbing, cyanosis , or edema. NEUROLOGICAL: Awake and alert. No obvious cranial nerve deficits. Motor grossly within normal limits. Normal speech. Medications and IVs Current Medications Medications (Trade) Dose Ordered Sig/Jeremy Route Start Time Stop Time Status Last Admin (Cipro) 500 mg BID PO 05/22/17 21:00 05/28/17 20:59 05/26/17 08:57 (KlonoPIN) 0.5 mg BID PO 05/22/17 21:00 05/26/17 08:57 (Lexapro) 20 mg DAILY PO 05/23/17 09:00 05/26/17 08:57 (SEROquel) 50 mg BID PO 05/22/17 21:00 05/26/17 08:56 (Ativan) 0.5 mg Q12H PRN PO 05/22/17 18:30 (Ativan Inj) 0.5 mg Q12H PRN IM 05/22/17 18:30 (Mag-Al Plus Susp Liq) 30 ml Q6H PRN PO 05/22/17 18:30 05/23/17 21:25 (Habitrol 21 Mg Patch.24 Hr) 1 patch DAILY T-DERMAL 05/23/17 09:00 Miscellaneous Information 1 DAILY T-DERMAL 05/23/17 09:00 (Lipitor) 10 mg DAILY PO 05/25/17 09:00 05/26/17 08:57 (Tylenol) 650 mg Q4H PRN PO 05/24/17 15:30 05/26/17 08:56 (Milk Of Magnesia Liq) 30 ml DAILY PRN PO 05/24/17 15:30 05/25/17 18:38 (Mag-Al Plus Susp Liq) 30 ml Q6H PRN PO 05/24/17 15:30 (Atarax) 50 mg Q6H PRN PO 05/24/17 15:30 (Catapres) 0.1 mg Q6H PRN PO 05/25/17 11:15 A/P Problem List: (1) Generalized anxiety disorder ICD Code: F41.1 - Generalized anxiety disorder Status: Acute (2) Neurocognitive disorder ICD Code: F99 - Mental disorder, not otherwise specified Status: Acute (3) Hyperkalemia ICD Code: E87.5 - Hyperkalemia Status: Acute (4) Chest pain ICD Code: R07.9 - Chest pain, unspecified Status: Acute (5) Chronic kidney disease, stage 3 ICD Code: N18.3 - Chronic kidney disease, stage 3 (moderate) Status: Acute (6) Dementia with behavioral disturbance ICD Code: F03.91 - Unspecified dementia with behavioral disturbance Assessment and Plan 85-year-old female with known history of dementia, Alzheimer, hypertension, chronic kidney disease stage III who came into the hospital for suicidal ideation. Suicidal ideation, anxiety/depression, dementia -Continue management per psychiatry team Hypertension: chronic, stable, BP fairly well controlled - Clonidine prn - BP trend within normal Hyperlipidemia: acute on chronic - Lipid profile cholesterol 211, LDL 136 - Started low-dose Lipitor 10mg daily - Follow-up lipid profile in 3 months as an outpatient [facility] on Chronic kidney disease stage III: Creatinine increased to 1.7, Baseline Cr 1.2 in Nov 2016 -Avoid nephrotoxins -Encourage oral intake -Repeat BMP shows improvement, Cr 1.33 -Outpatient f/up BMP in 1 week Urinary tract infection: acute -Urine culture with Proteus mirabilis, sensitive to Cipro -Continue Cipro with stop date 05/28 Abdominal Pain: unclear etiology. CT abdomen/pelvis done on 05/20/17 reviewed, shows moderate diverticulosis with no definite inflammatory changes; mild aneurysmal dilatation of the aorta measuring up to 3.1cm. -abdominal xray reviewed and unremarkable -patient's abdominal pain resolved, tolerating oral intake DVT prophylaxis: ambulation Discharge Planning The patient is medically stable at this time, will sign off. Please contact [facility] or reconsult as needed. Shirley Metcalf PA-C May 26, 2017 2:00 pm
[2017-05-26 17:06] VITALS: BP 129/62; PULSE 63; RESP 16; TEMP 98; O2SAT 98
[2017-05-27 05:41] VITALS: BP 150/69; PULSE 86; RESP 18; TEMP 97.6; O2SAT 93
[2017-05-27] MEDS: NICOTINE 21 MG/24 HR PATCH T-DERMAL SCH (09:00)
[2017-05-27] MEDS: REMOVE OLD PATCH T-DERMAL SCH (09:00)
[2017-05-27] MEDS: QUEtiapine FUMARATE 100 MG TAB PO SCH ×2 (09:32→20:57)
[2017-05-27] MEDS: CIPROFLOXACIN 500 MG TAB PO SCH ×2 (09:32→20:57)
[2017-05-27] MEDS: ESCITALOPRAM OXALATE 20 MG TAB PO SCH (09:32)
[2017-05-27] MEDS: clonazePAM 0.5 MG TAB PO SCH ×2 (09:32→20:57)
[2017-05-27] MEDS: ATORVASTATIN 10 MG TAB PO SCH (09:33)
[2017-05-27] MEDS: ACETAMINOPHEN 325 MG TAB PO PRN (09:33)
--- NOTE | 2017-05-27 12:29 | HHI.PYPN ---
Subjective Remarks Patient presented to [facility], patient continued guardian advocate appointed. Patient later seen in her room patient calm pleasant with me continues diffusely confused. No behavior problems at this time him a compliant medication Review of Systems Except as stated in HPI: all other systems reviewed are Neg Mental Status Examination Appearance: Appropriate Consciousness: Alert Orientation: Person Speech: Rapid Language: Adequate Fund of Knowledge: Inadequate Memory: Impaired Mood: Angry Affect: Labile Thought Process & Associations: Loose associations, Disorganized Thought Content: Bizarre thinking Hallucination Type: None Delusion Type: Paranoid Suicidal Ideation: No Suicidal Plan: No Suicidal Intention: No Homicidal Ideation: No Homicidal Plan: No Homicidal Intention: No Insight: Poor Judgment: Poor Results Vitals/IOs Vital Signs Date Time Temp Pulse Resp B/P (MAP) Pulse Ox O2 Delivery O2 Flow Rate FiO2 05/27/17 05:41 97.6 86 18 150/69 (96) 93 05/25/17 17:25 21 Intake and Output 05/27/17 05/27/17 05/28/17 08:00 16:00 00:00 Intake Total 240 ml 240 ml Balance 240 ml 240 ml Assessment & Plan Problem List: (1) DEMENTIA IN OTH DISEASES CLASSD ELSWHR W BEHAVIORAL DISTURB ICD Codes: F02.81 - DEMENTIA IN OTH DISEASES CLASSD ELSWHR W BEHAVIORAL DISTURB (2) ALZHEIMER'S DISEASE WITH LATE ONSET ICD Codes: G30.1 - ALZHEIMER'S DISEASE WITH LATE ONSET Assessment & Plan Estimated LOS: days patient discussed with [facility], retained with case continued guardian advocate appointed. Patient remains confused disoriented though no behavior problem Justification for Cont. Inpt. At this time patient will decompensate if placed in a lower level of care Discharge Planning This time remains somewhat problematic Request HC Surrog/Guard Advoc?: Yes Moreno Cleveland MD May 27, 2017 12:29
[2017-05-27 17:48] VITALS: BP 123/56; PULSE 69; RESP 18; TEMP 98.3; O2SAT 98
[2017-05-28 05:00] VITALS: BP 148/65; PULSE 76; RESP 18; TEMP 96.8; O2SAT 94
[2017-05-28] MEDS: ESCITALOPRAM OXALATE 20 MG TAB PO SCH (08:17)
[2017-05-28] MEDS: QUEtiapine FUMARATE 100 MG TAB PO SCH ×2 (08:17→20:54)
[2017-05-28] MEDS: ATORVASTATIN 10 MG TAB PO SCH (08:17)
[2017-05-28] MEDS: CIPROFLOXACIN 500 MG TAB PO SCH (08:17)
[2017-05-28] MEDS: clonazePAM 0.5 MG TAB PO SCH ×2 (08:17→20:54)
[2017-05-28] MEDS: NICOTINE 21 MG/24 HR PATCH T-DERMAL SCH (08:24)
[2017-05-28] MEDS: REMOVE OLD PATCH T-DERMAL SCH (08:24)
--- NOTE | 2017-05-28 13:00 | HHI.PYPN ---
Subjective Remarks Patient seen and a room with nurse Low and medical student , chart reviewed, patient compliant medication. Patient calm pleasantly confused, no significant behavioral problems noted. Review of Systems Except as stated in HPI: all other systems reviewed are Neg Mental Status Examination Appearance: Appropriate Consciousness: Alert Orientation: Person Speech: Rapid Language: Adequate Fund of Knowledge: Inadequate Memory: Impaired Mood: Angry Affect: Labile Thought Process & Associations: Loose associations, Disorganized Thought Content: Bizarre thinking Hallucination Type: None Delusion Type: Paranoid Suicidal Ideation: No Suicidal Plan: No Suicidal Intention: No Homicidal Ideation: No Homicidal Plan: No Homicidal Intention: No Insight: Poor Judgment: Poor Results Vitals/IOs Vital Signs Date Time Temp Pulse Resp B/P (MAP) Pulse Ox O2 Delivery O2 Flow Rate FiO2 05/28/17 05:00 96.8 76 18 148/65 (92) 94 05/27/17 13:49 21 Intake and Output 05/28/17 05/28/17 05/29/17 08:00 16:00 00:00 Intake Total 0 ml Balance 0 ml Assessment & Plan Problem List: (1) DEMENTIA IN OTH DISEASES CLASSD ELSWHR W BEHAVIORAL DISTURB ICD Codes: F02.81 - DEMENTIA IN OTH DISEASES CLASSD ELSWHR W BEHAVIORAL DISTURB (2) ALZHEIMER'S DISEASE WITH LATE ONSET ICD Codes: G30.1 - ALZHEIMER'S DISEASE WITH LATE ONSET Assessment & Plan Estimated LOS: days patient continued to [place] confused and disoriented, no significant behavioral problems, Justification for Cont. Inpt. At this time patient decompensate now placed an appropriate level of care Discharge Planning Continue to work on placement issues Request HC Surrog/Guard Advoc?: Yes Moreno Cleveland MD May 28, 2017 13:00
[2017-05-28 16:37] VITALS: BP 138/61; PULSE 74; RESP 19; TEMP 98.6; O2SAT 97
[2017-05-29 06:25] VITALS: BP 142/80; PULSE 74; RESP 15; TEMP 98.4; O2SAT 96
[2017-05-29] MEDS: ATORVASTATIN 10 MG TAB PO SCH (08:40)
[2017-05-29] MEDS: clonazePAM 0.5 MG TAB PO SCH ×2 (08:40→21:50)
[2017-05-29] MEDS: QUEtiapine FUMARATE 100 MG TAB PO SCH ×2 (08:40→21:50)
[2017-05-29] MEDS: ESCITALOPRAM OXALATE 20 MG TAB PO SCH (08:40)
[2017-05-29] MEDS: REMOVE OLD PATCH T-DERMAL SCH (08:44)
[2017-05-29] MEDS: NICOTINE 21 MG/24 HR PATCH T-DERMAL SCH (08:46)
--- NOTE | 2017-05-29 14:07 | HHI.PYPN ---
Subjective Remarks Pt seen and discussed with staff. She has been compliant with medications. She has been confused and dramatic on unit, but staff state that pt is improving. Sleep is improved. No aggression today. Mental Status Examination Appearance: Appropriate Consciousness: Alert Orientation: Person Speech: Rapid Language: Adequate Fund of Knowledge: Inadequate Memory: Impaired Mood: Angry Affect: Labile Thought Process & Associations: Loose associations, Disorganized Thought Content: Bizarre thinking Hallucination Type: None Delusion Type: Paranoid Suicidal Ideation: No Suicidal Plan: No Suicidal Intention: No Homicidal Ideation: No Homicidal Plan: No Homicidal Intention: No Insight: Poor Judgment: Poor Results Vitals/IOs Vital Signs Date Time Temp Pulse Resp B/P (MAP) Pulse Ox O2 Delivery O2 Flow Rate FiO2 05/29/17 06:25 98.4 74 15 142/80 (100) 96 05/27/17 13:49 21 Intake and Output 05/29/17 05/29/17 05/30/17 08:00 16:00 00:00 Intake Total 120 ml 0 ml Balance 120 ml 0 ml Assessment & Plan Problem List: (1) DEMENTIA IN OTH DISEASES CLASSD ELSWHR W BEHAVIORAL DISTURB ICD Codes: F02.81 - DEMENTIA IN OTH DISEASES CLASSD ELSWHR W BEHAVIORAL DISTURB (2) ALZHEIMER'S DISEASE WITH LATE ONSET ICD Codes: G30.1 - ALZHEIMER'S DISEASE WITH LATE ONSET Assessment & Plan Continue current tx plan. Estimated LOS: days Justification for Cont. Inpt. risk of decompensation Request HC Surrog/Guard Advoc?: Yes Sana Perales MD May 29, 2017 14:07
[2017-05-29 17:30] VITALS: O2SAT 93
[2017-05-29 18:18] VITALS: BP 150/69; PULSE 78; RESP 16; TEMP 97.9; O2SAT 98
[2017-05-30 06:20] VITALS: BP 140/72; PULSE 89; RESP 18; TEMP 98; O2SAT 96
[2017-05-30] MEDS: ESCITALOPRAM OXALATE 20 MG TAB PO SCH (08:20)
[2017-05-30] MEDS: QUEtiapine FUMARATE 100 MG TAB PO SCH ×2 (08:20→21:33)
[2017-05-30] MEDS: clonazePAM 0.5 MG TAB PO SCH ×2 (08:20→21:32)
[2017-05-30] MEDS: NICOTINE 21 MG/24 HR PATCH T-DERMAL SCH (08:21)
[2017-05-30] MEDS: REMOVE OLD PATCH T-DERMAL SCH (08:21)
[2017-05-30] MEDS: ATORVASTATIN 10 MG TAB PO SCH (08:21)
--- NOTE | 2017-05-30 14:39 | HHI.PYPN ---
Subjective Remarks Pt seen and discussed with staff. She is accusing people of stealing her things and insisted that little men stole her breakfast tray. No aggression or agitation today. She is compliant with medications. Mental Status Examination Appearance: Appropriate Consciousness: Alert Orientation: Person Speech: Rapid Language: Adequate Fund of Knowledge: Inadequate Memory: Impaired Mood: Angry Affect: Labile Thought Process & Associations: Loose associations, Disorganized Thought Content: Bizarre thinking Hallucination Type: None Delusion Type: Paranoid Suicidal Ideation: No Suicidal Plan: No Suicidal Intention: No Homicidal Ideation: No Homicidal Plan: No Homicidal Intention: No Insight: Poor Judgment: Poor Results Vitals/IOs Vital Signs Date Time Temp Pulse Resp B/P (MAP) Pulse Ox O2 Delivery O2 Flow Rate FiO2 05/30/17 06:20 98.0 89 18 140/72 (94) 96 05/29/17 17:30 21 Intake and Output 05/30/17 05/30/17 05/31/17 08:00 16:00 00:00 Intake Total 0 ml Balance 0 ml Assessment & Plan Problem List: (1) DEMENTIA IN OTH DISEASES CLASSD ELSWHR W BEHAVIORAL DISTURB ICD Codes: F02.81 - DEMENTIA IN OTH DISEASES CLASSD ELSWHR W BEHAVIORAL DISTURB (2) ALZHEIMER'S DISEASE WITH LATE ONSET ICD Codes: G30.1 - ALZHEIMER'S DISEASE WITH LATE ONSET Assessment & Plan Continue current tx plan. Estimated LOS: days Justification for Cont. Inpt. risk of decompensation Request HC Surrog/Guard Advoc?: Yes Sana Perales MD May 30, 2017 14:39
[2017-05-30 17:56] VITALS: BP 135/66; PULSE 78; RESP 16; TEMP 97.6; O2SAT 96
[2017-05-31 05:24] VITALS: BP 130/62; PULSE 79; RESP 17; TEMP 97; O2SAT 95
[2017-05-31] MEDS: clonazePAM 0.5 MG TAB PO SCH ×2 (08:22→21:22)
[2017-05-31] MEDS: QUEtiapine FUMARATE 100 MG TAB PO SCH ×2 (08:22→21:24)
[2017-05-31] MEDS: ATORVASTATIN 10 MG TAB PO SCH (08:23)
[2017-05-31] MEDS: REMOVE OLD PATCH T-DERMAL SCH (08:23)
[2017-05-31] MEDS: ESCITALOPRAM OXALATE 20 MG TAB PO SCH (08:23)
[2017-05-31] MEDS: NICOTINE 21 MG/24 HR PATCH T-DERMAL SCH (08:23)
--- NOTE | 2017-05-31 14:27 | HHI.PYPN ---
Subjective Remarks Patient seen in day room with medical student , patient continues pleasantly confused no behavior problems at this time. Staff is concerned about her oral intake and metabolic stability. We will repeat CBC CMP and UA tomorrow morning monitor that Review of Systems Except as stated in HPI: all other systems reviewed are Neg Mental Status Examination Appearance: Appropriate Consciousness: Alert Orientation: Person Speech: Rapid Language: Adequate Fund of Knowledge: Inadequate Memory: Impaired Mood: Angry Affect: Labile Thought Process & Associations: Loose associations, Disorganized Thought Content: Bizarre thinking Hallucination Type: None Delusion Type: Paranoid Suicidal Ideation: No Suicidal Plan: No Suicidal Intention: No Homicidal Ideation: No Homicidal Plan: No Homicidal Intention: No Insight: Poor Judgment: Poor Results Vitals/IOs Vital Signs Date Time Temp Pulse Resp B/P (MAP) Pulse Ox O2 Delivery O2 Flow Rate FiO2 05/31/17 05:24 97.0 79 17 130/62 (84) 95 05/29/17 17:30 21 Intake and Output 05/31/17 05/31/17 06/01/17 08:00 16:00 00:00 Intake Total 600 ml 240 ml Balance 600 ml 240 ml Assessment & Plan Problem List: (1) DEMENTIA IN OTH DISEASES CLASSD ELSWHR W BEHAVIORAL DISTURB ICD Codes: F02.81 - DEMENTIA IN OTH DISEASES CLASSD ELSWHR W BEHAVIORAL DISTURB (2) ALZHEIMER'S DISEASE WITH LATE ONSET ICD Codes: G30.1 - ALZHEIMER'S DISEASE WITH LATE ONSET Assessment & Plan Estimated LOS: days patient continues confused and demented but pleasant though pleasant with no significant behavioral problems will repeat labs in the a.m. to monitor metabolic issues Justification for Cont. Inpt. At this time patient decompensated placed in the lower level of care Discharge Planning Continue her family with placement issues Request HC Surrog/Guard Advoc?: Yes Moreno Cleveland MD May 31, 2017 14:27
[2017-05-31 17:31] VITALS: O2SAT 93
[2017-05-31 18:19] VITALS: BP 136/77; PULSE 75; RESP 18; TEMP 98.2; O2SAT 94
[2017-06-01 06:08] VITALS: BP 139/64; PULSE 79; RESP 18; TEMP 98.1; O2SAT 95
[2017-06-01] MEDS: ESCITALOPRAM OXALATE 20 MG TAB PO SCH (08:24)
[2017-06-01] MEDS: QUEtiapine FUMARATE 100 MG TAB PO SCH ×2 (08:24→21:02)
[2017-06-01] MEDS: clonazePAM 0.5 MG TAB PO SCH ×2 (08:24→21:03)
[2017-06-01] MEDS: NICOTINE 21 MG/24 HR PATCH T-DERMAL SCH (08:26)
[2017-06-01] MEDS: ATORVASTATIN 10 MG TAB PO SCH (08:26)
[2017-06-01] MEDS: REMOVE OLD PATCH T-DERMAL SCH (08:26)
[2017-06-01 11:17] LABS: AUTOMATED NEUTROPHIL # 4.3 TH/MM3 (1.8-7.7); BASOPHIL # 0.1 TH/MM3 (0-0.2); BASOPHIL % 1.2 % (0.0-2.0); EOSINOPHIL # 0.3 TH/MM3 (0-0.4); EOSINOPHIL % 5.1 % (0.0-4.0); HEMATOCRIT 33.7 % (35.0-46.0); HEMOGLOBIN 11.4 GM/DL (11.6-15.3); LYMPH % 21.9 % (9.0-44.0); LYMPHOCYTE # 1.4 TH/MM3 (1.0-4.8); MEAN CELL VOLUME 89.5 FL (80.0-100.0); MEAN CORPUSCULAR HEMOGLOBIN 30.4 PG (27.0-34.0); MEAN PLATELET VOLUME 11.9 FL (7.0-11.0); MONO % 5.9 % (0.0-8.0); MONOCYTE # 0.4 TH/MM3 (0-0.9); NEUT % 65.9 % (16.0-70.0); PLATELET COUNT 186 TH/MM3 (150-450); RED BLOOD COUNT 3.77 MIL/MM3 (4.00-5.30); RED CELL DISTRIBUTION WIDTH 14.4 % (11.6-17.2); WHITE BLOOD COUNT 6.6 TH/MM3 (4.0-11.0)
[2017-06-01 11:48] LABS: ALBUMIN 2.9 GM/DL (3.4-5.0); ALT (GPT) 20 U/L (10-53); AST (GOT) 15 U/L (15-37); BICARBONATE 23.2 MEQ/L (21.0-32.0); BLOOD UREA NITROGEN 31 MG/DL (7-18); CALCIUM 8.2 MG/DL (8.5-10.1); CHLORIDE 114 MEQ/L (98-107); CREATININE 1.22 MG/DL (0.50-1.00); GLOMERULAR FILTRATION RATE 42 ML/MIN (>89); GLUCOSE,RANDOM 115 MG/DL (74-106); SODIUM (NA) 144 MEQ/L (136-145)
[2017-06-01 11:50] LABS: ALKALINE PHOSPHATASE 138 U/L (45-117); TOTAL BILIRUBIN ADULT 0.2 MG/DL (0.2-1.0); TOTAL PROTEIN 7.1 GM/DL (6.4-8.2)
--- NOTE | 2017-06-01 13:55 | HHI.PYPN ---
Subjective Remarks Patient seen in day room with floor staff, patient calm wasn't with me continues pleasant lady confused disoriented. Labs odor from yesterday have been reviewed with his been no significant changes in them. For now continue treatment Review of Systems Except as stated in HPI: all other systems reviewed are Neg Mental Status Examination Appearance: Appropriate Consciousness: Alert Orientation: Person Speech: Rapid Language: Adequate Fund of Knowledge: Inadequate Memory: Impaired Mood: Angry Affect: Labile Thought Process & Associations: Loose associations, Disorganized Thought Content: Bizarre thinking Hallucination Type: None Delusion Type: Paranoid Suicidal Ideation: No Suicidal Plan: No Suicidal Intention: No Homicidal Ideation: No Homicidal Plan: No Homicidal Intention: No Insight: Poor Judgment: Poor Results Labs Test 06/01/17 10:15 White Blood Count 6.6 TH/MM3 Red Blood Count 3.77 MIL/MM3 Hemoglobin 11.4 GM/DL Hematocrit 33.7 % Mean Corpuscular Volume 89.5 FL Mean Corpuscular Hemoglobin 30.4 PG Mean Corpuscular Hemoglobin Concent 34.0 % Red Cell Distribution Width 14.4 % Platelet Count 186 TH/MM3 Mean Platelet Volume 11.9 FL Neutrophils (%) (Auto) 65.9 % Lymphocytes (%) (Auto) 21.9 % Monocytes (%) (Auto) 5.9 % Eosinophils (%) (Auto) 5.1 % Basophils (%) (Auto) 1.2 % Neutrophils # (Auto) 4.3 TH/MM3 Lymphocytes # (Auto) 1.4 TH/MM3 Monocytes # (Auto) 0.4 TH/MM3 Eosinophils # (Auto) 0.3 TH/MM3 Basophils # (Auto) 0.1 TH/MM3 CBC Comment DIFF FINAL Differential Comment Blood Urea Nitrogen 31 MG/DL Creatinine 1.22 MG/DL Random Glucose 115 MG/DL Total Protein 7.1 GM/DL Albumin 2.9 GM/DL Calcium Level 8.2 MG/DL Alkaline Phosphatase 138 U/L Aspartate Amino Transf (AST/SGOT) 15 U/L Alanine Aminotransferase (ALT/SGPT) 20 U/L Total Bilirubin 0.2 MG/DL Sodium Level 144 MEQ/L Potassium Level 4.3 MEQ/L Chloride Level 114 MEQ/L Carbon Dioxide Level 23.2 MEQ/L Anion Gap 7 MEQ/L Estimat Glomerular Filtration Rate 42 ML/MIN Vitals/IOs Vital Signs Date Time Temp Pulse Resp B/P (MAP) Pulse Ox O2 Delivery O2 Flow Rate FiO2 06/01/17 06:08 98.1 79 18 139/64 (89) 95 05/31/17 17:31 21 Intake and Output 06/01/17 06/01/17 06/01/17 07:59 15:59 23:59 Intake Total 720 ml 120 ml Balance 720 ml 120 ml Assessment & Plan Problem List: (1) DEMENTIA IN OTH DISEASES CLASSD ELSWHR W BEHAVIORAL DISTURB ICD Codes: F02.81 - DEMENTIA IN OTH DISEASES CLASSD ELSWHR W BEHAVIORAL DISTURB (2) ALZHEIMER'S DISEASE WITH LATE ONSET ICD Codes: G30.1 - ALZHEIMER'S DISEASE WITH LATE ONSET Assessment & Plan Estimated LOS: days patient continues diffusely confused disoriented but, pleasant, needing occasional interventions but behavior has been okay. Laboratory yesterday been reviewed with no significant changes noted Justification for Cont. Inpt. At this time patient would decompensate placed in the lower level of care Discharge Planning We need to consider possible return home with patient's family. We'll get PT and OT assessment to determine the feasibility of this Request HC Surrog/Guard Advoc?: Yes Moreno Cleveland MD Jun 01, 2017 13:55
[2017-06-01 14:31] LABS: BILIRUBIN, URINE NEG (NEG); BLOOD, URINE NEG (NEG); GLUCOSE,URINE TRACE mg/dL (NEG); KETONE, URINE NEG (NEG); NITRITE,URINE NEG (NEG); PH, URINE 5.5 (5.0-8.5); SQUAMOUS EPITHELIAL CELL URINE 4 /hpf (0-5); URINE COLOR YELLOW (YELLW/STRAW); URINE LEUKOCYTE ESTERASE NEG (NEG)
[2017-06-01 17:27] VITALS: BP 146/80; PULSE 80; RESP 18; TEMP 98.8; O2SAT 97
[2017-06-02 05:38] VITALS: BP 176/79; PULSE 78; RESP 18; TEMP 97.9; O2SAT 95
[2017-06-02] MEDS: clonazePAM 0.5 MG TAB PO SCH ×2 (08:18→20:43)
[2017-06-02] MEDS: QUEtiapine FUMARATE 100 MG TAB PO SCH ×2 (08:18→20:43)
[2017-06-02] MEDS: ATORVASTATIN 10 MG TAB PO SCH (08:18)
[2017-06-02] MEDS: ESCITALOPRAM OXALATE 20 MG TAB PO SCH (08:18)
[2017-06-02] MEDS: NICOTINE 21 MG/24 HR PATCH T-DERMAL SCH (08:20)
[2017-06-02] MEDS: REMOVE OLD PATCH T-DERMAL SCH (08:40)
--- NOTE | 2017-06-02 10:52 | HHI.PYPN ---
Subjective Remarks Met with patient's son, nurse caregiver, and family friend, along with counselor umm. Family's goal is to have patient return home. They are finishing up preparing her bedroom for her. Patient's in the past few days. The do not want us to share this with the patient. There are family members grandchildren coming in for the and about 10 days. The family wishes to slowly tell patient about her 's after visiting with family members for a few days. We will agree with their request. He also discussed diagnosis medication treatment and recommendations. Patient then seen in the day room with nurse Dolores. Patient continues pleasantly confused overall calm cooperative. When sharing with her probable discharge tomorrow to her family and her home she acknowledged it though without much enthusiasm. However once I mentioned that she'll be going home to her pet cat she became more animated and willing to return home. Thus we will discharge patient tomorrow. To follow-up with her primary care physician. There appears to be sufficient an appropriate caregivers involved with this patient at home Review of Systems Except as stated in HPI: all other systems reviewed are Neg Mental Status Examination Appearance: Appropriate Consciousness: Alert Orientation: Person Speech: Rapid Language: Adequate Fund of Knowledge: Inadequate Memory: Impaired Mood: Angry Affect: Labile Thought Process & Associations: Loose associations, Disorganized Thought Content: Bizarre thinking Hallucination Type: None Delusion Type: Paranoid Suicidal Ideation: No Suicidal Plan: No Suicidal Intention: No Homicidal Ideation: No Homicidal Plan: No Homicidal Intention: No Insight: Poor Judgment: Poor Results Labs Test 06/01/17 13:45 Urine Color YELLOW Urine Turbidity CLEAR Urine pH 5.5 Urine Specific [place] 1.022 Urine Protein TRACE mg/dL Urine Glucose (UA) TRACE mg/dL Urine Ketones NEG mg/dL Urine Occult Blood NEG Urine Nitrite NEG Urine Bilirubin NEG Urine Urobilinogen LESS THAN 2.0 MG/DL Urine Leukocyte Esterase NEG Urine RBC 1 /hpf Urine WBC 1 /hpf Urine Squamous Epithelial Cells 4 /hpf Microscopic Urinalysis Comment CULT NOT INDICATED Vitals/IOs Vital Signs Date Time Temp Pulse Resp B/P (MAP) Pulse Ox O2 Delivery O2 Flow Rate FiO2 06/02/17 05:38 97.9 78 18 176/79 (111) 95 05/31/17 17:31 21 Intake and Output 206/02/17 06/03/17 08:00 16:00 00:00 Intake Total 0 ml 360 ml Balance 0 ml 360 ml Assessment & Plan Problem List: (1) DEMENTIA IN OTH DISEASES CLASSD ELSWHR W BEHAVIORAL DISTURB ICD Codes: F02.81 - DEMENTIA IN OTH DISEASES CLASSD ELSWHR W BEHAVIORAL DISTURB (2) ALZHEIMER'S DISEASE WITH LATE ONSET ICD Codes: G30.1 - ALZHEIMER'S DISEASE WITH LATE ONSET Assessment & Plan Estimated LOS: days patient continues confused demented though no behavioral problems, compliant medications. Consider probable discharge tomorrow to family Justification for Cont. Inpt. At this time patient decompensate if not placed in an appropriate level of care Discharge Planning Probable discharge tomorrow to family Request HC Surrog/Guard Advoc?: Yes Moreno Cleveland MD Jun 02, 2017 10:52
[2017-06-02 18:17] VITALS: BP 149/76; PULSE 80; RESP 18; TEMP 98.9; O2SAT 97
[2017-06-03 05:38] VITALS: BP 177/80; PULSE 75; RESP 18; TEMP 98.2; O2SAT 94
[2017-06-03] MEDS: clonazePAM 0.5 MG TAB PO SCH (08:27)
[2017-06-03] MEDS: ATORVASTATIN 10 MG TAB PO SCH (08:27)
[2017-06-03] MEDS: NICOTINE 21 MG/24 HR PATCH T-DERMAL SCH ×2 (08:27→08:30)
[2017-06-03] MEDS: ESCITALOPRAM OXALATE 20 MG TAB PO SCH (08:28)
[2017-06-03] MEDS: QUEtiapine FUMARATE 100 MG TAB PO SCH (08:28)
[2017-06-03] MEDS: REMOVE OLD PATCH T-DERMAL SCH (08:30)
[2017-06-03] MEDS ORDERED: CLON.5 PO (10:01)
[2017-06-03] MEDS ORDERED: SERO100T PO (10:01)
[2017-06-03] MEDS ORDERED: LIPI10TA PO (10:01)
[2017-06-03] MEDS ORDERED: LEXA20TA PO (10:01)
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
== END 2017-06-03 13:00 | disposition home or self-care (01) | DRG 57 ==
LOC: H250 16:16
PROVIDERS: ADMIT Psychiatry & Neurology Psychiatry; ATTEND Psychiatry & Neurology Psychiatry
DX: G30.1 Alzheimer's disease with late onset (principal); F02.81 Dementia in other diseases classified elsewhere, unspecified severity, with behavioral disturbance; N17.9 Acute kidney failure, unspecified; N39.0 Urinary tract infection, site not specified; N18.3 Chronic kidney disease, stage 3 (moderate); I12.9 Hypertensive chronic kidney disease with stage 1 through stage 4 chronic kidney disease, or unspecified chronic kidney disease; F41.1 Generalized anxiety disorder; E78.5 Hyperlipidemia, unspecified; Z87.891 Personal history of nicotine dependence; K57.90 Diverticulosis of intestine, part unspecified, without perforation or abscess without bleeding
CPT/HCPCS: 74018; 80048; 80053; 80061; 80076; 81001; 83036; 85025